=== PATIENT | female | born 1955 | race Caucasian/White ===

== ENCOUNTER 2021-10-29 08:59 | Outpatient (CLI) | payer MEDICARE, BC, SELFPAY ==
[2021-10-29 09:38] LABS: Hemoglobin A1C* 7.2 % (0-5.6)
[2021-10-29 13:32] LABS: Basophils Percent Auto 0.3 % (0.0-3.0); Eosinophils Percent Auto 6.7 % (0.0-7.0); Hematocrit 41.7 % (33.0-51.0); Hemoglobin* 13.7 gm/dL (12.0-16.0); Immature Granulocytes Abs Auto 0.04 K/uL (0.00-0.30); Lymphocytes Percent Auto 25.1 % (20-44); Mean Corpuscular HGB Conc 33 gm/dL (32-36); Mean Corpuscular Hemoglobin 28 pg (26-34); Mean Corpuscular Volume 85 fL (80-100); Monocytes Percent Auto 6.1 % (0.0-11.0); Neutrophils Percent Auto 61.5 % (42.0-72.0); Platelet Count* 344 K/uL (140-440); RDW Coefficient of Variation % 14.4 % (11.5-15.5); Red Blood Count 4.91 m/uL (4.00-5.20); White Blood Count* 12.18 K/uL (4.50-11.00)
[2021-10-29 13:34] LABS: Slide Review Reflex No
[2021-10-29 13:51] LABS: Creatinine Urine 117.3 mg/dL
[2021-10-29 13:54] LABS: Microalbumin Creatinine Ratio 90 mg/g (0-30); Microalbumin Urine 11 mg/dL
[2021-10-29 15:45] LABS: Albumin* 3.7 g/dL (3.3-5.0); Blood Urea Nitrogen* 16 mg/dL (7-30); Carbon Dioxide* 29 mmol/L (20-32); Chloride* 100 mmol/L (96-114); Creatinine* 0.6 mg/dL (0.5-1.5); Estimated Glomerular Filt Rate 100 ml/min; Glucose* 170 mg/dL (60-115); Potassium* 4.6 mmol/L (3.6-5.1); Sodium* 136 mmol/L (135-149); Total Protein* 6.8 g/dL (6.0-8.3)
[2021-10-29 15:46] LABS: Alanine Aminotransferase* 9 U/L (4-35); Alkaline Phosphatase* 113 U/L (40-150); Aspartate Amino Transferase* 21 U/L (12-35); Bilirubin Total* 0.6 mg/dL (0.1-1.5); Cholesterol* 203 mg/dL (90-199); HDL Cholesterol* 55 mg/dL (>=50); LDL Cholesterol Calculated 109 mg/dL (<100); Triglycerides* 197 mg/dL (40-149); Vitamin B12* 247 pg/mL (243-894)
== END 2021-10-29 09:00 | disposition home or self-care (01) ==
PROVIDERS: PCP Nurse Practitioner Family; Visit Provider Nurse Practitioner Family
DX: Z00.00 Encounter for general adult medical examination without abnormal findings (principal); E11.9 Type 2 diabetes mellitus without complications; R53.83 Other fatigue; I10 Essential (primary) hypertension; D51.8 Other vitamin B12 deficiency anemias; G62.9 Polyneuropathy, unspecified; E03.9 Hypothyroidism, unspecified; F41.9 Anxiety disorder, unspecified
CPT/HCPCS: 36415; 80053; 80061; 82043; 82570; 82607; 83036; 85025

== ENCOUNTER 2022-09-19 09:38 | Outpatient (CLI) | payer MEDICARE, BC, SELFPAY | END 2022-09-19 09:39 | disposition home or self-care (01) | PROVIDERS: PCP Nurse Practitioner Family; Visit Provider Nurse Practitioner Family | DX: E11.9 Type 2 diabetes mellitus without complications (principal); R53.83 Other fatigue; D51.8 Other vitamin B12 deficiency anemias; Z13.0 Encounter for screening for diseases of the blood and blood-forming organs and certain disorders involving the immune mechanism; Z13.6 Encounter for screening for cardiovascular disorders | CPT/HCPCS: 80053; 80061; 81015; 82043; 82570; 82607; 84443; 85025; 87077; 87086; 87186 ==

== ENCOUNTER 2022-10-08 11:50 | Outpatient (CLI) | payer MEDICARE, BC, SELFPAY | END 2022-10-08 11:51 | disposition home or self-care (01) | PROVIDERS: PCP Nurse Practitioner Family; Visit Provider Nurse Practitioner Family | DX: R32 Unspecified urinary incontinence (principal) | CPT/HCPCS: 81015; 87086; 87186 ==

== ENCOUNTER 2022-10-28 08:07 | Outpatient (CLI) | payer MEDICARE, BC, SELFPAY | END 2022-10-28 08:08 | disposition home or self-care (01) | PROVIDERS: PCP Nurse Practitioner Family; Visit Provider Nurse Practitioner Family | DX: R32 Unspecified urinary incontinence (principal); Z13.21 Encounter for screening for nutritional disorder; Z86.39 Personal history of other endocrine, nutritional and metabolic disease; R53.83 Other fatigue; F34.1 Dysthymic disorder | CPT/HCPCS: 81015; 82306; 87086; 87186 ==

== ENCOUNTER 2022-10-29 | Outpatient (CLI) | payer MEDICARE, BC, SELFPAY | END 2022-10-29 00:01 | disposition home or self-care (01) | LOC: NFLDREF 20:47 | PROVIDERS: PCP Nurse Practitioner Family; Referring Provider Nurse Practitioner Family; Visit Provider Nurse Practitioner Family | DX: N39.0 Urinary tract infection, site not specified (principal); F33.8 Other recurrent depressive disorders | CPT/HCPCS: 87086; 87186 ==

== ENCOUNTER 2022-12-06 13:15 | Outpatient (CLI) | payer MEDICARE, BC, SELFPAY ==
[2022-12-05 11:40] LABS: Creatinine* 0.7 mg/dL (0.5-1.5); Estimated Glomerular Filt Rate 96 ml/min
--- NOTE | 2022-12-06 14:00 | CRLHL7_ITS ---
For Patients: As a result of the Century Cures Act, medical imaging exams and procedure reports are released immediately into your electronic medical record. You may view this report before your referring provider. If you have questions, please contact your health care provider. INDICATION: URINARY INCONTINENCE TECHNIQUE: CT abdomen and pelvis urogram without and with 100 cc Isovue 370 intravenous contrast. Contrast images were obtained in the nephrographic and delayed phases. COMPARISON: None. FINDINGS: KIDNEYS: The unenhanced images demonstrate no kidney or ureteral stones. The kidneys are normal in caliber and demonstrate normal uptake and excretion of IV contrast. Lobular contour of the kidneys without solid renal mass or cyst. The renal collecting systems and ureters are symmetrical, normal in caliber, and without evidence of mass or filling defect. URINARY BLADDER: The bladder is incompletely distended. No discernible filling defect or wall thickening. No adjacent inflammation. OTHER: Dependent atelectasis is present within the left lower lobe. Fatty liver. Spleen normal. Small hiatal hernia. No adrenal nodule. Pancreas within normal limits. Gallbladder absent. Upper abdominal varices. No ascites. Sigmoid diverticulosis. No diverticulitis. No bowel obstruction. Large left paramedian abdominal wall hernia containing multiple loops of bowel measuring 21.3 cm. No small bowel obstruction, free air, free fluid or abscess. There is a lobular structure adjacent to the left anterior uterus measuring 3.0 cm. IMPRESSION: 1. No solid renal mass or stone. No hydronephrosis. 2. Probable fibroids arising from the uterus. Pelvic ultrasound recommended for further evaluation. 3. Fatty liver. 4. Sigmoid diverticulosis. Please note that all CT scans at this facility use dose modulation, iterative reconstruction, and/or weight-based dosing when appropriate to reduce radiation dose to as low as reasonably achievable. Dictated by Victorino Bowers MD @ 12/09/2022 4:00:06 PM (Electronically Signed)
== END 2022-12-06 13:16 | disposition home or self-care (01) ==
LOC: CT 13:15
PROVIDERS: PCP Nurse Practitioner Family; Visit Provider Nurse Practitioner Family
DX: R32 Unspecified urinary incontinence (principal); K76.0 Fatty (change of) liver, not elsewhere classified; K57.30 Diverticulosis of large intestine without perforation or abscess without bleeding
CPT/HCPCS: 36415; 74178; 82565; Q9967

== ENCOUNTER 2023-01-03 13:47 | Outpatient (CLI) | payer MEDICARE, BC, SELFPAY | END 2023-01-03 13:48 | disposition home or self-care (01) | PROVIDERS: PCP Nurse Practitioner Family; Visit Provider Nurse Practitioner Family | DX: R05.9 Cough, unspecified (principal); R06.00 Dyspnea, unspecified; R60.0 Localized edema; I10 Essential (primary) hypertension; R42 Dizziness and giddiness; E55.9 Vitamin D deficiency, unspecified; R51.9 Headache, unspecified | CPT/HCPCS: 83880; 84484; 85025 ==

== ENCOUNTER 2023-02-11 09:55 | Outpatient (CLI) | payer MEDICARE, BC, SELFPAY | END 2023-02-11 09:56 | disposition home or self-care (01) | PROVIDERS: PCP Nurse Practitioner Family; Visit Provider Nurse Practitioner Family | DX: N39.0 Urinary tract infection, site not specified (principal); R35.0 Frequency of micturition | CPT/HCPCS: 81015; 87086; 87186 ==

== ENCOUNTER 2023-03-04 07:38 | Outpatient (CLI) | payer MEDICARE, BC, SELFPAY | END 2023-03-04 07:39 | disposition home or self-care (01) | PROVIDERS: PCP Nurse Practitioner Family; Visit Provider Nurse Practitioner Family | DX: N39.0 Urinary tract infection, site not specified (principal) | CPT/HCPCS: 81015; 87086; 87186 ==

== ENCOUNTER 2023-03-21 07:59 | Outpatient (CLI) | payer MEDICARE, BC, SELFPAY | END 2023-03-21 08:00 | disposition home or self-care (01) | LOC: KYNREF 10:04 | PROVIDERS: PCP Nurse Practitioner Family; Visit Provider Nurse Practitioner Family | DX: N39.0 Urinary tract infection, site not specified (principal) | CPT/HCPCS: 81015; 87086; 87186 ==

== ENCOUNTER 2023-04-18 11:16 | Outpatient (CLI) | payer MEDICARE, BC, SELFPAY | END 2023-04-18 11:17 | disposition home or self-care (01) | PROVIDERS: PCP Nurse Practitioner Family; Visit Provider Nurse Practitioner Family | DX: N39.0 Urinary tract infection, site not specified (principal); B96.20 Unspecified Escherichia coli [E. coli] as the cause of diseases classified elsewhere | CPT/HCPCS: 81015; 87086; 87186 ==

== ENCOUNTER 2023-07-25 09:45 | Outpatient (CLI) | payer MEDICARE, BC, SELFPAY ==
--- OUTSIDE RECORDS SUMMARY | 2023-07-25 09:50 | XMS_ITS | Encounter Summary ---
Author Name Unknown Organization [facility] Address [address] [place] [address] Care Team Providers Care Senior Recruiter Name Role Phone Elsewhere, Pcp Primary Care Provider Unavailabl e Reason for Visit * Appointment Request (Routine) - Closed Specialty Diagnoses / Procedures Referred By Contac t Referred To Contact Urology Diagnoses Urinary Urge Incontinence Referral ID Status Reason Start Date Expiration Date Visits Re quested Visits Authorized [id number] Closed 03/28/2023 03/27/2024 1 1 Encounter Details Date Type Department Care Team (Late st Contact Info) Description 05/29/2023 10:30 AM CDT Office Visit Department of Urology in [address] [address] Dasha Chance P[address]ALuisa-C[address] [address] Cystitis Recurrent (Primary Dx); Urgency Urinary Discharge Disposition: Home or Self Care Social History Tobacco Use Types Packs/Day Years Used Date Smoking Tobacco: Never Smokeless Tobacco: Never Alcohol Use Standard Drinks/Week Comments Not Currently 0 (1 standard drink = 0.6 oz pur e alcohol) Humiliation, Afraid, Rape, and Kick questionnair e Answer Date Recorded Within the last year, have y ou been afraid of your partner or ex-partner? No 10/28/2022 Within the last year, have y ou been humiliated or emotionally abused in other ways by your partner or ex-partner? No Within the last year, have y ou been kicked, hit, slapped, or otherwise physically hurt by your partner or ex-partner? No 10/28/2022 Within the last year, have y ou been raped or forced to have any kind of sexual activity by your partner or ex-partner? No 10/28/2022 Social Connection and Isolat ion Panel [NHANES] Answer Date Recorded In a typical week, how many times do you talk on the phone with family, friends, or neighbors? More than three times a week 11/01/2019 How often do you get togethe r with friends or relatives? Patient declined 11/01/2019 How often do you attend chur or pentecostal services? Patient declined 11/01/2019 Do you belong to any clubs o r organizations such as anabaptist groups, unions, fraternal or athletic groups, or school groups? Patient declined 11/01/2019 How often do you attend meet ings of the clubs or organizations you belong to? Patient declined 11/01/2019 Are you , , di vorced, , never , or living with a partner? 11/01/2019 AUDIT-C Answer Date Recorded Q1: How often do you have a drink containing alc ohol? Monthly or less 11/01/2019 Q2: How many drinks containi ng alcohol do you have on a typical day when you are drinking? 1 or 2 11/01/2019 Q3: How often do you have si x or more drinks on one occasion? Never 11/01/2019 Overall Financial Resource Strain (CARDIA) Answe r Date Recorded How hard is it for you to pa y for the very basics like food, housing, medical care, and heating? Not hard at all 10/28/2022 [facility] - Occupational Stress Questionnaire Answer Date Recorded Do you feel stress - tense, restless, nervous, or anxious, or unable to sleep at night because your mind is troubled all the time - these days? To some extent 11/01/2019 Exercise Vital Sign Answer Date Recorde d On average, how many days pe r week do you engage in moderate to strenuous exercise (like a brisk walk)? Patient declined On average, how many minutes do you engage in exercise at this level? Patient declined 10/28/2022 Hunger Vital Sign Answer Date Recorded Within the past 12 months, y ou worried that your food would run out before you got the money to buy more. Never true 10/29/19 Within the past 12 months, t he food you bought just didn't last and you didn't have money to get more. Never true 10/28/2022 PRAPARE - Transportation Answer Date Re corded In the past 12 months, has l ack of transportation kept you from medical appointments or from getting medications? No 10/15 In the past 12 months, has l ack of transportation kept you from meetings, work, or from getting things needed for daily living? No 10/28/2022 Nutrition Answer Date Recorded Nutrition: EVOO Fat Source Unknown 10/28 On average, how many serving s of fruits and vegetables do you eat per day (serving size is equal to 1 cup or approximately the size of a tennis ball)? 3-5 10/28/2022 Dental Answer Date Recorded Dental: Regular Dentist Yes 03/21/19 Employment Answer Date Recorded Employment status Retired 10/28/2022 Housing Stability Answer Date Recorded What is your living situation today? I have a [facility] place to live 10/28/2022 Education Answer Date Recorded What is the highest level of school you have completed or the highest degree you have received? 12th grade 11/01/2019 Sex and Gender Information Value Date Recorded Sex Assigned at Female 07/22/2017 8:24 AM CDT Gender Identity Female 07/22/2017 8:24 AM CDT Sexual Orientation Choose not to disclose 2017 8:24 AM CDT documented as of this encounter Patient Instructions * Patient Instructions* Dasha Chance P.A.-C. - 05/29/2023 10:30 AM CDT #1 Recurrent UTI, postmenopausal - obtain records from [place] - urinalysis with microscopy, urine culture, upper tract imaging - if we have documented recurrent UTI > 3 over a year, would recommend starting UTI prevention: - topical estrogen apply dime-sized amount to the external urethra 3 nights weekly (long lines operator plan for preventing UTI and postmenopausal women) - six-month therapy of methenamine 1000 mg twice daily plus vitamin-C 1000 mg twice daily (sterilizes the kidney system) - daily cranberry with meals 2x/day - daily probiotic with meals 2x/day - standing orders for urinalysis with microscopy urine culture to use as needed ([facility]) # 2 urinary urge incontinence - we need to manage recurrent UTI before we have a better understanding of your true bladder health. - before considering third line options sacral neuromodulation InterStim or Botox, we need to complete a formal pelvic exam and cystoscopy Behavioral management: - timed voiding every 2 hours during the day - restrict fluids 3 hours before bed - elevate lower extremities 3 hours before bed if you experience lower extremity swelling - max fluid intake 60 oz daily - avoid all dietary irritants - consider meeting with pelvic floor physical therapy, they can help you work on urge suppression which are mindfulness techniques, as well as guide your pelvic floor physical therapy routine Medical management: Anticholinergics: Oxybutynin, tolterodine, trospium... Several others - you believe you are on 1 ofthese medications trialed for about a month and did not find it effective. - potential side effects: Dry eyes, dry mouth, constipation, increased risk of falling, confusion and dementia with long-term use Mirabegron - review, urine insurance would charge you $250/ 60 days - potential side effects: Headache, marginal increase in blood pressure, can be costly if your insurance is not willing to help cover Surgical options (see handouts below) - Botox - in the OR or in the office, usually needs to be done every 4-6months - Sacral neuromodulation Interstim, pacemaker for the bladder Avoid the following dietary bladder irritants: - caffeine, nicotine and alcohol - coffee/tea (even decaf) - citrus fruits/juices (grapefruit, kiwi, sunny, limes, oranges, tangerines) - other fruit (apples, grapes, guava, melons, nectarines, peaches, pineapples, plums, strawberries) - carbonated beverages (pop), even sparkling water - vitamin C and vitamin Bs - chili peppers/spicy food - onions - tomatoes - vinegar (apple cider gummies, salad dressing, pickled foods) documented in this encounter Progress Notes * Bereket Prieto R.N. - 05/29/2023 10:30 AM CDT Bladder Scan Documentation Void prior to Scan: YES Bladder Distention: absent Patient states need to void: NO Position during scan: supine Bladder Scan Volume: NA Post Void Residual: 146 ml Was Uroflow used: NO If yes, complex uroflowmetry was completed using calibrated electronic equipment utilized. * Dasha Chance P.A.-C. - 05/29/2023 10:30 AM CDT SUBJECTIVE CHIEF COMPLAINT/REASON FOR VISIT Face to Face, uro clinic [facility] - UUI HISTORY OF PRESENT ILLNESS Pleasant 68-year-old female, returns today for further discussion of recurrent UTI and urge incontinence. Bit of a difficult story, she [facility] and we do not have theserecords. She reports she did have a CT urogram done I do not have a radiology report but he was able to review the images, no stones and no hydro. She reports she continues with recurrent infections her assists with topical estrogen 3 times weekly. She never took the methenamine vitamin-C therapy. If she has a UTI she usually can appreciate some intermittent left lower quadrant pain, urinary hesitation dysuria and urge incontinence. Upon further questioning, she has not certain if her symptomsresolve or not when she is on the antibiotic. REVIEW OF SYSTEMS Per HPI. Pain 0/10 OBJECTIVE VITAL SIGNS There were no vitals taken for this visit. PHYSICAL EXAMINATION General: Overall well-appearing, no acute distress. Skin: No raised areas, rashes or lesions to areas I inspected. Eyes: No scleral icterus, normal conjunctivae. Respiratory: Normal respiratory effort. Musculoskeletal: Walks with a steady gait, without assistance. Psychiatric: Appropriate affect. Neurological: Alert and oriented x4. DIAGNOSTICS Lab Results Component Value Date/Time GLUCOSE 140 (H) 04/09/2021 0836 GLUCOSE 178 (H) 09/21/2020 0924 GLUCOSE 160 (H) 09/02/2019 1020 GLUCOSE 108 (H) 12/29/2018 1508 GLUCOSE 119 (H) 01/20/2018 1555 Lab Results Component Value Date/Time HGBA1C 8.0 (H) 04/09/2021 0836 HGBA1C 7.7 (H) 09/21/2020 0924 HGBA1C 7.7 (H) 04/17/2020 0814 HGBA1C 7.1 (H) 09/02/2019 1020 HGBA1C 6.9 (H) 12/29/2018 1508 ASSESSMENT / PLAN ASSESSMENT/PLAN #1 Recurrent UTI, postmenopausal - obtain records from [place] - urinalysis with microscopy, urine culture, upper tract imaging - if we have documented recurrent UTI > 3 over a year, would recommend starting UTI prevention: - topical estrogen apply dime-sized amount to the external urethra 3 nights weekly (long lines operator plan for preventing UTI and postmenopausal women) - six-month therapy of methenamine 1000 mg twice daily plus vitamin-C 1000 mg twice daily (sterilizes the kidney system) - daily cranberry with meals 2x/day - daily probiotic with meals 2x/day - standing orders for urinalysis with microscopy urine culture to use as needed ([facility]) # 2 urinary urge incontinence - we need to manage recurrent UTI before we have a better understanding of your true bladder health. - before considering third line options sacral neuromodulation InterStim or Botox, we need to complete a formal pelvic exam and cystoscopy Behavioral management: - timed voiding every 2 hours during the day - restrict fluids 3 hours before bed - elevate lower extremities 3 hours before bed if you experience lower extremity swelling - max fluid intake 60 oz daily - avoid all dietary irritants - consider meeting with pelvic floor physical therapy, they can help you work on urge suppression which are mindfulness techniques, as well as guide your pelvic floor physical therapy routine Medical management: Anticholinergics: Oxybutynin, tolterodine, trospium... Several others - you believe you are on 1 ofthese medications trialed for about a month and did not find it effective. - potential side effects: Dry eyes, dry mouth, constipation, increased risk of falling, confusion and dementia with long-term use Mirabegron - review, urine insurance would charge you $250/ 60 days - potential side effects: Headache, marginal increase in blood pressure, can be costly if your insurance is not willing to help cover Surgical options (see handouts below) - Botox - in the OR or in the office, usually needs to be done every 4-6months - Sacral neuromodulation Interstim, pacemaker for the bladder Avoid the following dietary bladder irritants: - caffeine, nicotine and alcohol - coffee/tea (even decaf) - citrus fruits/juices (grapefruit, kiwi, sunny, limes, oranges, tangerines) - other fruit (apples, grapes, guava, melons, nectarines, peaches, pineapples, plums, strawberries) - carbonated beverages (pop), even sparkling water - vitamin C and vitamin Bs - chili peppers/spicy food - onions - tomatoes - vinegar (apple cider gummies, salad dressing, pickled foods) PATIENT EDUCATION Ready to learn, no apparent learning barriers were identified; learning preferences include listening. Explained diagnosis and treatment plan; patient expressed understanding of the content. documented in this encounter Plan of Treatment Not on file documented as of this encounter Procedures Procedure Name Priority Date/Time Associated Diagnosis Comments CYTOLOGY NON-RETAIL WIRELESS ASSOCIATE Routine 05/29/2023 12:0 6 PM CDT Urgency Urinary BACTERIAL CULTURE, AEROBIC + SUSC, URINE Routine 05/29/2023 12:06 PM CDT Cystitis Recurrent URINALYSIS WITH MICROSCOPIC Routine 05/29/2023 12:06 PM CDT Cystitis Recurrent documented in this encounter Results * Cytology Non-RETAIL WIRELESS ASSOCIATE (05/29/2023 12:06 PM CDT) 06/02/2023 11:42 AM CDT ECLR Fixative NA 06/02/2023 11:42 AM CDT ECLR Report electronically signed by Alfonso Mendoza M.D. I verify that I have examined all relevant slides/material s for the specimen(s) and rendered or confirmed the diagnosis. 06/02/2023 11:42 AM CDT ECLR Gross Description Received 30 cc of cloudy yellow fluid without fixative. 06/02/2023 11:42 AM CDT ECLR Collection Procedure Straight catheter 06/02/2023 11:42 AM CDT ECLR Source A. Urine, straight, catheterized 06/02/2023 11:42 AM CDT ECLR Clinical History cystitis recurrent 06/02/2023 11:42 AM CDT ECLR Interpretation A. Urine, straight, catheterized (cytospin): Negative for High-Grade Urothelial Carcinoma. Crystals present. Scanty cellularity. 06/02/2023 11:42 AM CDT ECLR Urine 05/29/2023 12:0 6 PM CDT 05/30/2023 11:39 AM CDT Dasha Chance P.A.-C. LAB SURG PATH OR DERABLES Performing Organization Address [facility] Co de Phone Number [facility] [address] [place] [id number], [facility] ECLR [address] [place] [id number] * Bacterial Culture, Aerobic + Susceptibility, Urine (05/29/2023 12:06 PM CDT) Urine Culture No growth after 1 day of incubation. 05/30/2023 6:31 PM CDT ECLR Urine (Urine, Straight Catheter) 05/29/2023 12:06 PM CDT 05/29/2023 8:26 PM CDT Comment:Specimen Source Site : Urine Dasha Chance P.A.-C. LAB MICROBIOLOGY - GENERAL ORDERABLES Performing Organization Address [facility] Co de Phone Number [facility] [address] [place] [phone], [facility] ECLR [facility] in [address] [address] * (ABNORMAL) Urinalysis, with Microscopic: Urine, Straight Catheter (05/29/2023 12:06 PM CDT) Source Urine, Urine, Straight Catheter 05/29/2023 12:34 PM CDT [facility] Clarity Clear Clear 05/29/2023 12:35 PM CDT [facility] Color Yellow 05/29/2023 12:35 PM CDT [facility] Comment: ----REFERENCE VALUE---- Colorless Yellow Karis Blood Negative Negative 05/29/2023 12:35 PM CDT [facility] Nitrite Negative Negative 05/29/2023 12:35 PM CDT [facility] Leukocyte Esterase Negative Negative 05/29/2023 12:35 PM CDT [facility] Protein Trace mg/dL 05/29/2023 12:35 PM CDT [facility] Comment: ----REFERENCE VALUE---- Negative Trace Glucose >=1000(A) Negative mg/dL 05/29/2023 12:35 PM CDT [facility] Ketone Trace(A) Negative mg/dL 05/29/2023 12:35 PM CDT [facility] Bilirubin Negative Negative 05/29/2023 12:35 PM CDT [facility] pH 5.0 5.0 - 8.0 05/29/2023 12:35 PM CDT [facility] Specific [place] 1.030 1.001 - 1.035 05/29/2023 12:35 PM CDT [facility] Urobilinogen 1.0 0.2 - 1.0 mg/dL 05/29/2023 12:35 PM CDT [facility] White Blood Cells None Seen /hpf 05/29/2023 6:05 PM CDT [facility] Comment: ----REFERENCE VALUE---- Males: 0-3 Females: 0-10 Unknown: 0-10 Red Blood Cells None Seen 0 - 2 /hpf 6:05 PM CDT [facility] Hyaline Casts 1-3 /lpf 05/29/2023 6:05 PM CDT [facility] Urine (Urine, Straight Catheter) 05/29/2023 12:06 PM CDT 05/29/2023 12:20 PM CDT Dasha Chance P.A.-C. LAB URINE ORDERA BLES [facility] [address] [place] [address], [facility] [place] [address] [place] [address] documented in this encounter Visit Diagnoses Diagnosis Cystitis Recurrent- Primary Urgency Urinary documented in this encounter Additional Health Concerns Assessment Noted Time PHQ-9 Depression Total Score: 2 06/19/19 16 9:23 AM CDT documented as of this encounter Care Teams Senior Recruiter Relationship Specialty Start Date End Date Elsewhere, Pcp PCP - General Family Medicine 02/13/18 documented as of this encounter
--- OUTSIDE RECORDS SUMMARY | 2023-07-25 09:50 | XMS_ITS | Referral Summary ---
Author Name Unknown Organization [facility] Address [address] [place] [address] Care Team Providers Care Air Pollution Analyst Name Role Phone Elsewhere, Pcp Primary Care Provider Unavailabl e Source Comments Patient records contain information from all sites at [facility]. For routine questions regarding patient records, call [phone] during business hours, M-F 8:00 AM - 5:00 PM Central Time. Record requests for emergency care only can be directed to [phone] at any time.[facility] Encounters Date Type Department Care Team Description 05/29/2023 10:30 AM CDT Office Visit Department of Urology in [address] [id number] Dasha Chance P.A.Magaly. Cystitis Recurrent (Primary Dx); Urgency Urinary Discharge Disposition: Home or Self Care from Last 3 Months Allergies Active Allergy Reactions Criticality Noted Date Comments Iysdily-Niq-Oke Reductase Inhibitors Myalgia 06/20/2015 Other reaction(s): Myalgia Medications Medication Sig Dispensed Refills Start Date End Date Status aspirin 81 mg capsule Take 1 tablet by mouth daily. 06/07/2013 Active levothyroxine (for_SYNTHROID, LEVOTHROID) 175 mcg tablet Take 1 tablet (175 mcg total) by mouth every morning before breakfast. 90 tablet 3 02/11/2017 Active BD INSULIN PEN NEEDLE UF MINI 31 gauge x 05/30 needle USE TO DELIVER INSULIN 3 05/09/2017 Active gabapentin (NEURONTIN) 300 mg capsule Take 2 capsules (600 mg total) by mouth 2 (two) times a day. 360 capsule 3 09/29/2017 Active potassium citrate (UROCIT-K) 10 mEq (1,080 mg) ER tablet TAKE 2 TABLETS BY MOUTH TWICE A DAY WITH MEALS 360 tablet 3 01/23/2018 Active cyanocobalamin (VITAMIN B12) 1,000 mcg/mL injection INJECT 1 ML (1,000 MCG TOTAL) UNDER THE SKIN EVERY 30 (THIRTY) DAYS. 3 mL 1 03/02/2018 Active lisinopril-hydroCH LOROthiazide (PRINZIDE,ZESTORET IC) 20-12.5 mg per tablet Take 1 tablet by mouth once daily. 30 tablet 04/06/2018 Active metFORMIN (GLUCOPHAGE) 1,000 mg tablet Take 1 tablet (1,000 mg total) by mouth 2 (two) times a day with meals. 60 tablet 04/06/2018 Active TRESIBA FLEXTOUCH U-100 100 unit/mL (3 mL) injection INJECT 36 UNITS UNDER THE SKIN AT BEDTIME. 3 pen 04/27/2018 Active cholecalciferol (VITAMIN D3) 2,000 Unit tablet Take 2,000 Units by mouth. Active glipiZIDE (GLUCOTROL) 10 mg tablet Take 10 mg by mouth 2 (two) times a day before breakfast and dinner. 10 mg in the morning and 5 mg in the evening 04/12/2021 Active metoprolol succinate (TOPROL-XL) 25 mg 24 hr tablet Take 25 mg by mouth. 08/24/2020 Active Contour Next Test Strips USE 1 TEST STRIP TWICE A DAY 10/20/2022 Active escitalopram (LEXAPRO) 10 mg tablet 10/29/2022 Active FLUoxetine (PROzac) 20 mg tablet Take 2 tablets by mouth daily. 02/12/2011 Active levothyroxine (SYNTHROID, LEVOTHROID) 150 mcg tablet Take 150 mcg by mouth every morning before breakfast. 02/12/2011 Active estradioL (ESTRACE) 0.1 mg/g (0.01%) vaginal cream Apply dime-sized amount to the external urethra 3 nights weekly 42.5 g 11 12/09/2022 Active ascorbic acid, vitamin C, (Vitamin C) 1,000 mg tablet Take 1 tablet (1,000 mg total) by mouth 2 (two) times a day. 180 tablet 1 05/29/2023 11/25/2023 Active methenamine (HIPREX) 1 gram tablet Take 1 tablet (1 g total) by mouth 2 (two) times a day. 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 Morbid Obesity 08/10/2016 Overview: Overview: Rule activated problem due to BMI 45-49 posted on 08/10 at 11:07 CDT. 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 09/14/2014 Overview: Overview: Diabetes Mellitus Retinopathy Nonprolif NOS Deficiency Of Other Specified B Group Vitamins 0 09/14/2014 Diabetes Mellitus Type 2 09/14/2013 Hypertension Essential Primary 06/12/2013 Overview: Unspecified Essential Hypertension HTN (hypertension) Leiomyoma Personal History 06/12/2013 Overview: Intramural leiomyoma of uterus Hyperlipidemia Mixed 06/12/2013 Overview: Mixed hyperlipidemia Edema Retina 06/12/2013 Overview: Retinal edema Fibroid Uterus Intramural 04/16/2011 Fibroid Uterus Submucous 04/16/2011 Depressive Disorder 04/11/2011 Overview: Depression onset unknown Hypothyroidism 04/11/2011 Overview: onset unknown Depression Major One Episode Moderate 02/12/2011 Diabetes Mellitus Type 2 02/12/2011 Hyperlipidemia Mixed 02/12/2011 Hypertension Essential Primary 02/12/2011 Overview: Overview: Unspecified Essential Hypertension HTN (hypertension) Hypothyroidism 02/12/2011 Overview: Overview: onset unknown Hyperlipidemia 04/24/2010 Overview: onset unknown Telangiectasia Retina Nondiabetic 10/27/2006 Edema Retina 05/30/2005 Fracture Humerus Closed Initial Right Follow Up Exam Resolved Problems Problem Noted Date Diagnosed Date Resolved Date Effusion Pleural 09/14/2014 01/22/2017 Overview: date unknown Stone Kidney 09/08/2012 01/22/2017 Hypertension 04/24/2010 06/20/2017 Overview: Hypertension onset unknown Immunizations Name Administration Dates Next Due Influenza, Injectable, Mdck, Preservative Free, Quadrivalent 03/24/2019 Influenza, Injectable, Quadrivalent 01/22/2017 Influenza, Unspecified 03/24/2019,02/22/2015 PCV13 04/21/2020 PPSV23 07/28/2013,04/11/2011 RZV (SHINGRIX) 03/24/2019,08/21/2018 SARS-COV-2 (COVID-19) - PFIZ ER (Discontinued)(12 years or older) 01/08/2021 Tdap 02/08/2023,10/04/2013,08/19/2007 influenza vaccine quad (FLUZONE/FLUARIX) (6 months and older)(PF) 01/08/2022,01/08/2021,02/11/2020,2019,01/22/2017,02/22/2015 Social History Tobacco Use Types Packs/Day Years Used Date Smoking Tobacco: Never Smokeless Tobacco: Never Tobacco Cessation:Counseling Given: Not Answered Alcohol Use Standard Drinks/Week Comments Not Currently [...] 11/01/2019 How often do you attend chur ch or advent services? Patient declined 11/01/2019 Do you belong to any clubs o r organizations such as synagogue groups, unions, fraternal or athletic groups, or [...] and heating? Not hard at all 10/28/2022 [facility] - Occupational Stress [...] your living situation today? I have a [facility] place to live 10/28/2022 Education Answer Date Recorded What is the highest level of school you have completed or the highest degree you have received? 12th grade 11/01/2019 Sex and Gender Information Value Date Recorded Sex Assigned at Female 07/22/2017 8:24 AM CDT Gender Identity Female 07/22/2017 8:24 AM CDT Sexual Orientation Choose not to disclose 2017 8:24 AM CDT Last Filed Vital Signs Vital Sign Reading Time Taken Comments Blood Pressure 155/69 02/08/2023 5:41 PM LOW EMISSION AUTOMOBILE DESIGNER Pulse 66 01/15/2023 12:52 PM CDT Temperature 36.7 ??C (98 ??F) 02/08/2023 5:41 PM [employer] EMISSION [employer]LE DESIGNER Respiratory Rate 18 02/08/2023 5:41 PM L[employer] EMISSION [employer]LE DESIGNER Oxygen Saturation 96% 02/08/2023 5:41 PM L[employer] EMISSION [employer]LE DES[employer]ER Inhaled Oxygen Concentration - - Weight 134 kg (295 lb) 12/26/2018 8:14 AM CDT Height 172.7 cm (5' 8) 02/08/2023 5:38 PM [employer] EMISSION [employer] DESIGN[employer] Body Mass Index 46.2 12/26/2018 8:14 AM CDT Plan of Treatment Not on file Medical Devices Implanted Type Area Extras Casting Director Device Identifier Shelf Expiration Date Model / Serial / Lot Mrk Biop Tmr Q Shp [id number] - [id number] Implanted:Qty: 1 on 12/11/2022 at [facility] Imaging Mark[employer] 05/05/2027 [id number] / / [id number] Procedures Procedure Name Priority Date/Time Associated Diagnosis Comments CYTOLOGY NON-SORTER LUMBER STRAIGHTENER Routine 05/29/2023 12:0 6 PM CDT Urgency Urinary URINALYSIS WITH MICROSCOPIC Routine 05/29/2023 12:06 PM CDT Cystitis Recurrent BACTERIAL CULTURE, AEROBIC + SUSC, URINE Routine 05/29/2023 12:06 PM CDT Cystitis Recurrent BI BREAST DIAGNOSTIC BILATERAL WITH TOMOSYNTHESIS RAD - Routine (most inpatients and all outpatients) 10/22/2022 2:20 PM CDT Pain Breast EXTI HEMOGLOBIN A1C, B Routine 04/09/2021 8:36 AM L[employer] EMISSION [employer] DES[employer]ER EXTI THYROID-STIMULATING HORMONE-SENSITIVE (S-TSH), S Routine 04/09/2021 8:36 AM LOW EMISSION [employer] DES[employer]ER EXTI BASIC METABOLIC PANEL, S/P Routine 04/09/2021 8:36 AM LOW EMISSION [employer] DES[employer]ER EXTI LIPID PANEL, S Routine 09/21/2020 9 :24 AM CDT COLONOSCOPY Routine 07/10/2018 1:06 PM CDT Screening Cancer Colon ALBUMIN, RANDOM, U Routine 01/22/2017 10 :33 AM LOW EMISSION [employer] DESIGNER Diabetes Mellitus Type 2 With Diabetic Neuropathy (HCC) THINPREP SCREEN HPV REFLEX Routine 06/17/2013 5:00 PM CDT from Last 3 Months or Most Recently Relevant to Health Maintenance Results * Cytology Non-SORTER LUMBER STRAIGHTENER (05/29/2023 12:06 PM CDT) 06/02/2023 11:42 AM [...] SURG PATH OR DERABLES Performing Organization Address [facility]/ZIP Co de Phone Number [facility] [address] [place] [phone], [facility] ECLR [address] [place] [phone] * Bacterial Culture, Aerobic + Susceptibility, Urine (05/29/2023 12:06 PM CDT) Urine Culture No growth after 1 day of incubation. 05/30/2023 6:31 PM CDT ECLR Urine (Urine, Straight Catheter) 05/29/2023 12:06 PM CDT 05/29/2023 8:26 PM CDT Comment:Specimen Source Site : Urine Dasha Chance P.A.-C. LAB MICROBIOLOGY - GENERAL ORDERABLES Performing Organization Address [facility] Co de Phone Number [facility] [address] [place] [phone], [facility] ECLR [facility] in [address] [address] * (ABNORMAL) Urinalysis, with Microscopic: Urine, Straight [...] 8.0 05/29/2023 12:35 PM CDT RDWG Specific [place] 1.030 1.001 - 1.035 05/29/2023 12:35 PM [...] Dasha Chance P.A.-C. LAB URINE ORDERA BLES [facility] [address] [place] [address], [facility] RDWG [facility] in [place] [address] [place] [phone] * (ABNORMAL) BI Breast Diagnostic Bilateral with Tomosynthesis (10/22/2022 2:20 PM CDT) Anatomical Region Laterality Modality Breast, Breast Imaging RST L OS, Breast Imaging ARZ LOS, Breast Imaging FLA LOS Bilateral Mammography 10/22/2022 3:17 PM CDT Impressions 10/22/2022 3:24 PM CDT 1. Low suspicion 13 mm cluster of coarse heterogeneous slowly progressive microcalcifications in the outer left breast. 2. No suspicious mammographic or sonographic findings to explain the patient's retroareolar left breast pain. RECOMMENDATION: ??Biopsy Recommend biopsy of low suspicion microcalcifications of the outer left breast. ASSESSMENT: ??BI-RADS: 4A: Suspicious. Narrative 10/22/2022 3:24 PM CDT EXAM: ??BI BREAST DIAGNOSTIC BILATERAL WITH TOMOSYNTHESIS, BI ULTRASOUND BREAST FOCUSED LEFT INDICATION: ??Left breast pain Reported clinical history of pain of the outer left breast. Currently patient reports generalized pain in the subareolar and periareolar region. COMPARISON: ??Prior exam(s) were available and reviewed for comparison. DENSITY: ??b. There are scattered areas of fibroglandular density. FINDINGS: ?? No suspicious mammographic findings of the right breast. A triangular marker is placed in the region of most intense breast pain. No suspicious mammographic findings in the region of pain. An ultrasound was performed in the retroareolar left breast. No suspicious sonographic findings. 13 mm cluster of slowly progressive coarse heterogeneous calcifications in the outer left breast middle to posterior depth, somewhat in a linear distribution. Procedure Note tIz Donnelly M.D. - 10/22/2022 EXAM: BI BREAST DIAGNOSTIC BILATERAL WITH TOMOSYNTHESIS, BI ULTRASOUNDBREAST FOCUSED LEFT INDICATION: Left breast pain Reported clinical history of pain of the outer left breast. Currentlypatient reports generalized pain in the subareolar and periareolar region. COMPARISON: Prior exam(s) were available and reviewed for comparison. DENSITY: b. There are scattered areas of fibroglandular density. FINDINGS: No suspicious mammographic findings of the right breast. A triangular marker is placed in the region of most intense breast pain.No suspicious mammographic findings in the region of pain. An ultrasound was performed in theretroareolar left breast. No suspicious sonographic findings. 13 mm cluster of slowly progressive coarse heterogeneous calcifications inthe outer left breast middle to posterior depth, somewhat in a linear distribution. IMPRESSION: 1. Low suspicion 13 mm cluster of coarse heterogeneous slowly progressivemicrocalcifications in the outer left breast. 2. No suspicious mammographic or sonographic findings to explain thepatient's retroareolar left breast pain. RECOMMENDATION: Biopsy Recommend biopsy of low suspicion microcalcifications of the outer leftbreast. ASSESSMENT: BI-RADS: 4A: Suspicious. Naye Stroud C.N.P. IMG BI PROCEDU RES * Microalbumin, Random, Urine (01/22/2017 10:33 AM LOW EMISSION AUTOMOBILE DESIGNER) Microalbumin 9.2 mg/L 01/22/2017 11:15 AM LOW EMISSION AUTOMOBILE DESIGNER [facility] Creatinine 121 mg/dL 01/22/2017 11:15 AM LOW EMISSION AUTOMOBILE DESIGNER [facility] Albumin/Creatinin e Ratio 8 <25 mg/g 01/22/2017 11:15 AM LOW EMISSION AUTOMOBILE DESIGNER [facility] Urine 01/22/2017 10:3 3 AM LOW EMISSION AUTOMOBILE DESIGNER 01/22/2017 10:33 AM LOW EMISSION AUTOMOBILE DESIGNER Trinidad Bill P.A.-C. LAB URINE ORDER [place] [facility] [id number] * Pathology ThinPrep Screen HPV Reflex (06/17/2013 5:00 PM CDT) Pathologist [facility] Interpretation [id number] POWERCHART HXThPrep [facility] See Comment POWERCHART Comment: A. ??ThinPrep Pap Test Screen (Cervical/Endocervical HPV Reflex): Satisfactory for evaluation. Negative for intraepithelial lesion or malignancy. [facility] See Comment POWERCHART Comment: Report electronically signed by ANDREI Jones (ASCP) 06/22/2013 09:08 Interpreted by: ANDRZEJ Laura(ASCP) [facility] See Comment POWERCHART Comment: A. ??ThinPrep Pap Test Screen (Cervical/Endocervical HPV Reflex): Received cloudy specimen in ThinPrep vial. Test Performed by: [address] [address] Image Assembler: Anthony R. Cockerill, III, M.D. Cervix/Endocervix 06/17/2013 5:00 PM CDT Jocelyn Coleman APRN, C.N.P., D.N.P. LAB PAP PATHDX ORDERABLES POWERCHART from Last 3 Months or Most Recently Relevant to Health Maintenance Care Teams Air Pollution Analyst Relationship Specialty Start Date End Date Elsewhere, Pcp PCP - General Family Medicine 02/13/18
--- OUTSIDE RECORDS SUMMARY | 2023-07-25 09:50 | XMS_ITS ---
Author Name Unknown Organization [facility] Address [address] [place] [address] Care Team Providers Care Runner Worker Name Role Phone Unavailable Unavailable Unavailable Surgery Details Not on file Complications Check Surgery Details section. Procedure Estimated Blood Loss Check Surgery Details section. Procedure Findings Check Surgery Details section. Procedure Specimens Taken Check Surgery Details section.
--- OUTSIDE RECORDS SUMMARY | 2023-07-25 09:50 | XMS_ITS | Encounter Summary ---
Author Name Unknown Organization [facility] Address [address] [place] [address] Care Team Providers Care Cook Helper Dessert Name Role Phone Elsewhere, Pcp Primary Care Provider Unavailabl e Encounter Details Date Type Department Care Team (Late st Contact Info) Description 02/02/2018 [facility] [address] [place] [phone] Naye Stroud, C.N.P. [address] [place] [phone] Hypertension NOS (Primary Dx); Snoring; Apnea Social History Tobacco Use Types Packs/Day Years Used Date Smoking Tobacco: Unknown Smokeless Tobacco: Never Sex and Gender Information Value Date Recorded Sex Assigned at Female 07/22/2017 8:24 AM CDT Gender Identity Female 07/22/2017 8:24 AM CDT Sexual Orientation Choose not to disclose 2017 8:24 AM CDT documented as of this encounter Plan of Treatment Not on file documented as of this encounter Visit Diagnoses Diagnosis Hypertension NOS- Primary Snoring Apnea documented in this encounter Additional Health Concerns Infection Onset Date Last Indicated Resolved Time COVID19 Pending 01/06/2020 01/06/2020 01/07/2020 3 :31 PM CDT Assessment Noted Time PHQ-9 Depression Total Score: 2 06/19/19 16 9:23 AM CDT documented as of this encounter Care Teams Cook Helper Dessert Relationship Specialty Start Date End Date Elsewhere, Pcp PCP - General Family Medicine 02/13/18 documented as of this encounter
--- OUTSIDE RECORDS SUMMARY | 2023-07-25 09:50 | XMS_ITS | Clinical Summary ---
Author Name Unknown Organization [facility] Address [address] [place] [address] Care Team Providers Care Computed Tomography Technician Name Role Phone Elsewhere, Pcp Primary Care Provider Unavailabl e Source Comments Patient records contain information from all sites at [facility]. For routine questions regarding patient records, call [phone] during business hours, M-F 8:00 AM - 5:00 PM Central Time. Record requests for emergency care only can be directed to [phone] at any time.[facility] Allergies Active Allergy Reactions Criticality Noted Date Comments Ucipkjw-Zpx-Agf Reductase Inhibitors Myalgia 06/20/2015 Other reaction(s): Myalgia [...] Hypertension 04/24/2010 06/20/2017 Overview: Hypertension onset unknown Encounters Date Type Department Care Team Description 05/29/2023 10:30 AM CDT Office Visit Department of Urology in [address] [phone] Dasha Chance, KarolA.Magaly. Cystitis Recurrent (Primary Dx); Urgency Urinary Discharge Disposition: Home or Self Care from Last 3 Months Immunizations Name Administration Dates Next Due Influenza, Injectable, Mdck, Preservative Free, Quadrivalent 03/24/2019 Influenza, Injectable, Quadrivalent 01/22/2017 Influenza, Unspecified 03/24/2019,02/22/2015 PCV13 04/21/2020 PPSV23 07/28/2013,04/11/2011 RZV (SHINGRIX) 03/24/2019,08/21/2018 SARS-COV-2 (COVID-19) - PFIZ ER (Discontinued)(12 years or older) 01/08/2021 Tdap 02/08/2023,10/04/2013,08/19/2007 influenza vaccine quad (FLUZONE/FLUARIX) (6 months and older)(PF) 01/08/2022,01/08/2021,02/11/2020,2019,01/22/2017,02/22/2015 Family History Medical History Relation Name Comments Diabetes Father Diabetes Sister Relation Name Status Comments Father Sister Social History Tobacco Use Types Packs/Day Years [...] often do you attend chur ch or episcopal services? Patient declined 11/01/2019 Do you belong to any clubs o r organizations such as confucianist groups, unions, fraternal or athletic groups, or [...] and heating? Not hard at all 10/28/2022 [facility]at [facility] - Occupational Stress Questionnaire Answer Date Recorded [...] your living situation today? I have a [facility] place to live 10/28/2022 Education Answer Date [...] Comments Blood Pressure 155/69 02/08/2023 5:41 PM COMMUNITY EDUCATOR Pulse 66 01/15/2023 12:52 PM CDT Temperature 36.7 ??C (98 ??F) 02/08/2023 5:41 PM COMMUNITY EDUCATOR Respiratory Rate 18 02/08/2023 5:41 PM COMMUNITY EDUCATOR Oxygen Saturation 96% 02/08/2023 5:41 PM COMMUNITY EDUCATOR Inhaled Oxygen Concentration - - Weight 134 kg (295 lb) 12/26/2018 8:14 AM CDT Height 172.7 cm (5' 8) 02/08/2023 5:38 PM COMMUNITY EDUCATOR Body Mass Index 46.2 12/26/2018 8:14 AM CDT Plan of Treatment Health Maintenance Due Date Last Done Comments Bone Density Scan (Osteoporo sis Screen) 1955 CT Colonography 1955 Cologuard 1955 Depression Monitoring (PHQ-9) 1955 Hepatitis C Screening 1955 Hepatitis B Vaccines (1 of 3 - Risk 3-dose series) 2017 Urine Albumin 01/22/2018 01/22/2017, 1211/2014, 10/04/2013, Additional history exists Diabetic Office Visit with F oot Exam 06/18/2018 06/18/2017, 06/18/2017, 01/22/2017, Additional history exists Hemoglobin A1C 07/08/2021 04/09/2021, 0710/2020, 04/17/2020, Additional history exists Lipid (Cholesterol) Screening 09/21/2021, 12/29/2018, 01/20/2018, Additional history exists Pneumococcal vaccine (65+ ye ars) (3 of 3 - PPSV23 or PCV20) 2022 04/21/2020, 07/28/2013, 04/11/2011 Creatinine Level (Kidney Fun ction Test) 04/09/2022 04/09/2021, 09/21/2020, 09/02/2019, Additional history exists Potassium Level 04/09/2022 04/09/2021, 07/0 10/2020, 09/02/2019, Additional history exists Sodium Level 04/09/2022 04/09/2021, 07/0 10/2020, 09/02/2019, Additional history exists Thyroid Stimulating Hormone (TSH) test for thyroid function 04/09/2022 04/09/2021, 04/17/2020, 12/29/2018, Additional history exists Dilated Eye Exam 06/01/2022 06/01/2021, , 03/14/2011, Additional history exists COVID-19 Vaccine ( - 2022-2 4 season) 2022 01/08/2021, 06/16/2020, 05/26/2020 Influenza Vaccine (#1) 2022 , 01/08/2021, 02/11/2020, Additional history exists Fall Risk Screen (Annual) 03/17/2023 Office Visit for Blood Press ure Check / Re-check 04/17/2023 01/15/2023 Colonoscopy 07/11/2023 07/10/2018, 07/10/2018 Colorectal Cancer Surveillance 07/11/2023 Mammogram 10/23/2023 10/22/2022, 07/0 08/2019, 12/03/2016, Additional history exists DTaP,Tdap,and Td Vaccines (4 - Td or Tdap) 02/08/2033 02/08/2023, 10/04/2013, 08/19/2007 Zoster Vaccines Completed 03/24/2019, 08/21/2018 Cervical Cancer Screening Discontinued 09/02/2019, 05/2013 Medical Devices Implanted Type Area Banking Manager Device Identifier Shelf Expiration Date Model / Serial / Lot Mrk Biop Tmr Q [id number] [id number] - [id number] Implanted:Qty: 1 on 12/11/2022 at [facility] [employer] 05/05/2027 [id number] / / [id number] Procedures Procedure Name Priority Date/Time Associated Diagnosis Comments CYTOLOGY NON-HAIRSPRING ADJUSTER Routine 05/29/2023 12:0 6 PM CDT Urgency Urinary URINALYSIS WITH MICROSCOPIC Routine 05/29/2023 12:06 PM CDT Cystitis Recurrent BACTERIAL CULTURE, AEROBIC + SUSC, URINE Routine 05/29/2023 12:06 PM CDT Cystitis Recurrent BI BREAST DIAGNOSTIC BILATERAL WITH TOMOSYNTHESIS RAD - Routine (most inpatients and all outpatients) 10/22/2022 2:20 PM CDT Pain Breast EXTI HEMOGLOBIN A1C, B Routine 04/09/2021 8:36 AM COMMUNITY EDUCATOR EXTI THYROID-STIMULATING HORMONE-SENSITIVE (S-TSH), S Routine 04/09/2021 8:36 AM COMMUNITY EDUCATOR EXTI BASIC METABOLIC PANEL, S/P Routine 04/09/2021 8:36 AM COMMUNITY EDUCATOR EXTI LIPID PANEL, S Routine 09/21/2020 9 :24 AM CDT COLONOSCOPY Routine 07/10/2018 1:06 PM CDT Screening Cancer Colon ALBUMIN, RANDOM, U Routine 01/22/2017 10 :33 AM COMMUNITY EDUCATOR Diabetes Mellitus Type 2 With Diabetic Neuropathy (HCC) THINPREP SCREEN HPV REFLEX Routine 06/17/2013 5:00 PM CDT from Last 3 Months or Most Recently Relevant to Health Maintenance Results * Cytology Non-HAIRSPRING ADJUSTER (05/29/2023 12:06 PM CDT) 06/02/2023 11:42 AM [...] SURG PATH OR DERABLES Performing Organization Address [facility] Co de Phone Number [facility] [address] [place] [phone], [facility] ECLR [address] [place] [phone] * Bacterial Culture, Aerobic + Susceptibility, Urine (05/29/2023 12:06 PM CDT) Urine Culture No growth after 1 day of incubation. 05/30/2023 6:31 PM CDT ECLR Urine (Urine, Straight Catheter) 05/29/2023 12:06 PM CDT 05/29/2023 8:26 PM CDT Comment:Specimen Source Site : Urine Dasha Chance P.A.-C. LAB MICROBIOLOGY - GENERAL ORDERABLES Performing Organization Address [facility] Co de Phone Number [facility] [address] [place] [phone], [facility] ECLR [facility] in [address] [address] * (ABNORMAL) Urinalysis, with Microscopic: Urine, Straight [...] 8.0 05/29/2023 12:35 PM CDT RDWG Specific [place] 1.030 1.001 - 1.035 05/29/2023 12:35 PM [...] Dasha Chance P.A.-C. LAB URINE ORDERA BLES [facility] [address], [place] [address], [facility] RDWG [facility] in [place] [address], [place] [phone] * (ABNORMAL) BI Breast Diagnostic Bilateral with [...] somewhat in a linear distribution. Procedure Note Itz Donnelly M.D. - 10/22/2022 EXAM: BI BREAST [...] outer leftbreast. ASSESSMENT: BI-RADS: 4A: Suspicious. Naye TERESA BI PROCEDU RES * Microalbumin, Random, Urine (01/22/2017 10:33 AM COMMUNITY EDUCATOR) Microalbumin 9.2 mg/L 01/22/2017 11:15 AM COMMUNITY EDUCATOR [facility] Creatinine 121 mg/dL 01/22/2017 11:15 AM COMMUNITY EDUCATOR [facility] Albumin/Creatinin e Ratio 8 <25 mg/g 01/22/2017 11:15 AM COMMUNITY EDUCATOR [facility] Urine 01/22/2017 10:3 3 AM COMMUNITY EDUCATOR 01/22/2017 10:33 AM COMMUNITY EDUCATOR Trinidad Bill P.A.-C. LAB URINE ORDER [facility] [address] [address], [facility] * Pathology ThinPrep Screen HPV Reflex (06/17/2013 5:00 PM CDT) Interpretation [id number] POWERCHART HXThPrep Scrn [facility] See Comment POWERCHART Comment: A. ??ThinPrep Pap Test Screen (Cervical/Endocervical HPV Reflex): Satisfactory for evaluation. Negative for intraepithelial lesion or malignancy. HXThPrep Scrn [facility] See Comment POWERCHART Comment: Report electronically signed by Mary Anne Gutierrez, SCT (ASCP) 06/22/2013 09:08 Interpreted by: Elia Barraza, CT(ASCP) HX Spec Desc-[place] See Comment POWERCHART Comment: A. ??ThinPrep Pap Test Screen (Cervical/Endocervical HPV Reflex): Received cloudy specimen in ThinPrep vial. Test Performed by: [address] [address] Plodding Machine Operator: Anthony Virgen III, M.D. Cervix/Endocervix 06/17/2013 5:00 PM CDT Jocelyn Coleman APRN, C.N.P., D.N.P. LAB PAP PATHDX ORDERABLES POWERCHART from Last 3 Months or Most Recently Relevant to Health Maintenance Care Teams Computed Tomography Technician Relationship Specialty Start Date End Date Elsewhere, Pcp PCP - General Family Medicine 02/13/18
--- NOTE | 2023-07-25 16:00 | US_ITS ---
Patient: JOE BRASWELL Facility:?[facility] RIS Patient ID:?[id number] Site Patient ID:?[id number]. Site :?[id number] Study:?US-Extremity Left LEV LT-07/25/2023 4:44:26 PM Ordering Physician:?JANEY MONTES APRN DREDGE MECHANIC Final Report: Indication: Left leg pain and swelling Technique: Left lower extremity venous ultrasound utilizing grayscale, color flow and duplex Doppler techniques. Comparison: None Findings: Sonographic evaluation from the left common femoral, greater saphenous, through the femoral vein, popliteal vein and calf veins demonstrate no echogenic debris, normal compressibility, normal augmented duplex Doppler waveforms and normal color flow (exception of lack of color flow within the calf veins/although expected augmented waveforms present) is noted. There is no popliteal cyst. Impression: Negative study/no left lower extremity DVT. Dictated by Lul Morton MD @ 07/25/2023 4:59:07 PM Signed by:?Lul Morton MD @07/25/2023 4:59:07 PM (Electronic Signature)
== END 2023-07-25 09:46 | disposition home or self-care (01) ==
PROVIDERS: PCP Nurse Practitioner Family; Visit Provider Nurse Practitioner Family
DX: R30.0 Dysuria (principal); M79.605 Pain in left leg; R60.0 Localized edema
CPT/HCPCS: 81001; 87086; 87186; 93971

== ENCOUNTER 2023-10-14 09:49 | Outpatient (CLI) | payer MEDICARE, BC, SELFPAY ==
--- OUTSIDE RECORDS SUMMARY | 2023-10-14 09:58 | XMS_ITS | Encounter Summary ---
Author Organization [facility] Address [address] [place] [address] Care Team Providers Care Computer Systems Engineer Name Role Phone Elsewhere, Pcp Primary Care Provider Unavailabl e Reason for Referral * Outpatient (Routine) - Authorized Specialty Diagnoses / Procedures Referred By Naseem t Referred To Contact Psychiatry and Psychology Diagnoses Persistent Depressive Disorder Anxiety Disorder Unspecified Naye Stroud, C.N.P. [address] [place] [address] [facility] Region Referral ID Status Reason Start Date Expiration Date V isits Requested Visits Authorized [id number] Authorized 09/30/2023 03/31/2025 1 1 Encounter Details Date Type Department Care Team (Late st Contact Info) Description 09/30/2023 [facility] [address] [place] [address] Naye Stroud, Dawit.N.P. [address] [place] [phone] Persistent Depressive Disorder (Primary Dx); Anxiety Disorder Unspecified Social History Tobacco Use Types Packs/Day Years [...] declined 11/01/2019 How often do you attend [employer] [facility] or sabianism services? Patient declined 11/01/2019 Do you belong to any clubs o r organizations such as gnosticist groups, unions, fraIsowalk or athletic groups, or school groups? Patient [...] and heating? Not hard at all 10/28/2022 [facility] Occupat ional Health - Occupational Stress [...] your living situation today? I have a [facility] place to live 10/28/2022 Education Answer [...] as of this encounter Plan of Treatment Scheduled Referrals Name Type Priority Associated Diagnoses Orde r Schedule Psychiatry & Psychology Referral Outpatient Referral Routine Persistent Depressive Disorder Anxiety Disorder Unspecified Expected: 09/30/2023 (Approximate), Expires: 12/30/2024 documented as of this encounter Visit Diagnoses Diagnosis Persistent Depressive Disorder- Primary Anxiety Disorder Unspecified documented in this encounter Additional Health Concerns Assessment Noted Time PHQ-9 Depression Total Score: 2 06/19/19 16 9:23 AM CDT documented as of this encounter Care Teams Computer Systems Engineer Relationship Specialty Start Date End Date Elsewhere, Pcp PCP - General Family Medicine 02/13/18 documented as of this encounter
--- OUTSIDE RECORDS SUMMARY | 2023-10-14 09:58 | XMS_ITS ---
Author Organization [facility] Address [address] [place] [address] Care Team Providers Care Prototype Assembler Electronics Name Role Phone Unavailable Unavailable Unavailable Surgery Details Not on file Complications Check Surgery Details section. Procedure Estimated Blood Loss Check Surgery Details section. Procedure Findings Check Surgery Details section. Procedure Specimens Taken Check Surgery Details section.
--- OUTSIDE RECORDS SUMMARY | 2023-10-14 09:58 | XMS_ITS | Clinical Summary ---
Author Organization [facility] Address [address] [place] [address] Care Team Providers Care Battery Recharger Name Role Phone Elsewhere, Pcp Primary Care Provider Unavailabl e Source Comments Patient records contain information from all sites at [facility]. For routine questions regarding patient records, call [phone] during business hours, M-F 8:00 AM - 5:00 PM Central Time. Record requests for emergency care only can be directed to [phone] at any time.[facility] Allergies Active Allergy Reactions Criticality Noted Date Comments Ilqviwy-Cpn-Jsp Reductase Inhibitors Myalgia 06/20/2015 Other reaction(s): Myalgia [...] Body Mass Index 40.0-44.9 Adult 0 08/10/2016 Overview (01/22/2017): Rule activated problem due to BMI 45-49 posted on 08/10 at 11:07 CDT. Morbid Obesity 08/10/2016 Overview (04/06/2022): Overview: Rule activated problem due to BMI 45-49 posted on 08/10 at 11:07 CDT. 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 09/14/2014 Overview (04/06/2022): Overview: Diabetes Mellitus Retinopathy Nonprolif NOS Deficiency Of Other Specified B Group Vitamins 0 09/14/2014 Diabetes Mellitus Type 2 09/14/2013 Hypertension Essential Primary 06/12/2013 Overview (08/06/2016): Unspecified Essential Hypertension HTN (hypertension) Leiomyoma Personal History 06/12/2013 Overview (01/22/2017): Intramural leiomyoma of uterus Hyperlipidemia Mixed 06/12/2013 Overview (01/22/2017): Mixed hyperlipidemia Edema Retina 06/12/2013 Overview (01/22/2017): Retinal edema Fibroid Uterus Intramural 04/16/2011 Fibroid Uterus Submucous 04/16/2011 Depressive Disorder 04/11/2011 Overview (08/06/2016): Depression onset unknown Hypothyroidism 04/11/2011 Overview (01/22/2017): onset unknown Depression Major One Episode Moderate 02/12/2011 Diabetes Mellitus Type 2 02/12/2011 Hyperlipidemia Mixed 02/12/2011 Hypertension Essential Primary 02/12/2011 Overview (04/06/2022): Overview: Unspecified Essential Hypertension HTN (hypertension) Hypothyroidism 02/12/2011 Overview (04/06/2022): Overview: onset unknown Hyperlipidemia 04/24/2010 Overview (01/22/2017): onset unknown Telangiectasia Retina Nondiabetic 10/27/2006 Edema Retina 05/30/2005 Fracture Humerus Closed Initial Right Follow Up Exam Resolved Problems Problem Noted Date Diagnosed Date Resolved Date Effusion Pleural 09/14/2014 01/22/2017 Overview (01/22/2017): date unknown Stone Kidney 09/08/2012 01/22/2017 Hypertension 04/24/2010 06/20/2017 Overview (08/06/2016): Hypertension onset unknown Encounters Date Type Department Care Team Description 09/30/2023 [facility] AND [address] [address] Naye Stroud C.N.P. Persistent Depressive Disorder (Primary Dx); Anxiety Disorder Unspecified from Last 3 Months Immunizations Name Administration [...] often do you attend chur ch or synagogue services? Patient declined 11/01/2019 Do you belong to any clubs o r organizations such as temple groups, unions, fraternal or athletic groups, or [...] and heating? Not hard at all 10/28/2022 [facility] - Occupational [...] money to buy more. Never true 10/29/19 23 Within the past 12 months, t he [...] your living situation today? I have a [facility] place to live 10/28/2022 Education Answer [...] Comments Blood Pressure 155/69 02/08/2023 5:41 PM SOLUTION ENGINEER Pulse 66 01/15/2023 12:52 PM CDT Temperature 36.7 ??C (98 ??F) 02/08/2023 5:41 PM SOLUTION ENGINEER Respiratory Rate 18 02/08/2023 5:41 PM SOLUTION ENGINEER Oxygen Saturation 96% 02/08/2023 5:41 PM SOLUTION ENGINEER Inhaled Oxygen Concentration - - Weight 134 kg (295 lb) 12/26/2018 8:14 AM CDT Height 172.7 cm (5' 8) 02/08/2023 5:38 PM SOLUTION ENGINEER Body Mass Index 46.2 12/26/2018 8:14 AM CDT Plan of Treatment Health Maintenance Due Date Last Done Comments Bone Density Scan (Osteoporo sis Screen) 1957 CT Colonography 1957 Cologuard 1957 Depression Monitoring (PHQ-9) 1955 Hepatitis C Screening 1955 Hepatitis B Vaccines (1 of 3 - Risk 3-dose series) 2017 Urine Albumin 01/22/2018 01/22/2017, 12/0 11/2014, 10/04/2013, Additional history exists Diabetic Office Visit with F oot Exam 06/18/2018 06/18/2017, 06/18/2017, 01/22/2017, Additional history exists Hemoglobin A1C 07/08/2021 04/09/2021, 07/0 10/2020, 04/17/2020, Additional history exists Lipid (Cholesterol) Screening [...] , 03/14/2011, Additional history exists COVID-19 Vaccine (4 - 2022-2 4 season) 2022 01/08/2021, 06/16/2020, 05/26/2020 Fall Risk Screen (Annual) 03/17/2023 Office Visit for Blood Press ure Check / Re-check 04/17/2023 01/15/2023 Colonoscopy 07/11/2023 07/10/2018, 07/10/2018 Colorectal Cancer Surveillance 07/11/2023 Mammogram 10/23/2023 10/22/2022, 07/0 08/2019, 12/03/2016, Additional history exists Influenza Vaccine (#1) 2023 , 01/08/2021, 02/11/2020, Additional history exists DTaP,Tdap,and Td Vaccines (4 - Td or Tdap) 02/08/2033 02/08/2023, 10/04/2013, 08/19/2007 Zoster Vaccines Completed 03/24/2019, 08/21/2018 Cervical Cancer Screening Discontinued 09/02/2019, 05/2013 Medical Devices Implanted Type Area Handle Machine Operator Device Identifier Shelf Expiration Date Model / Serial / Lot Mrk Biop Tmr Q Shp [id number] - [id number] Implanted:Qty: 1 on 12/11/2022 at [facility] [employer] 05/05/2027 [id number] / / [id number] Procedures Procedure Name Priority Date/Time Associated Diagnosis Comments BI BREAST DIAGNOSTIC BILATERAL WITH TOMOSYNTHESIS RAD - Routine (most inpatients and all outpatients) 10/22/2022 2:20 PM CDT Pain Breast COLONOSCOPY Routine 07/10/2018 1:06 PM CDT Screening Cancer Colon ALBUMIN, RANDOM, U Routine 01/22/2017 10 :33 AM SOLUTION ENGINEER Diabetes Mellitus Type 2 With Diabetic Neuropathy (HCC) HEMOGLOBIN A1C, B Routine 01/22/2017 10: 33 AM SOLUTION ENGINEER Diabetes Mellitus Type 2 With Diabetic Neuropathy (HCC) LIPID PANEL, S Routine 01/22/2017 10:33 AM SOLUTION ENGINEER Diabetes Mellitus Type 2 With Diabetic Neuropathy (HCC) THYROID-STIMULATING HORMONE-SENSITIVE (S-TSH) Routine 01/22/2017 10:33 AM SOLUTION ENGINEER Hypothyroidism BASIC METABOLIC PANEL, S/P Routine 01/22/2017 10:33 AM SOLUTION ENGINEER Diabetes Mellitus Type 2 With Diabetic Neuropathy (HCC) THINPREP SCREEN HPV REFLEX Routine 06/17/2013 5:00 PM CDT from Last 3 Months or Most Recently Relevant to Health Maintenance Results * (ABNORMAL) BI Breast Diagnostic Bilateral with [...] outer leftbreast. ASSESSMENT: BI-RADS: 4A: Suspicious. Naye MCCLAIN BI PROCEDU RES * (ABNORMAL) Lipid Panel (01/22/2017 10:33 AM [facility]) Cholesterol, Total 185 mg/dL 2016 11:29 AM [facility] Comment: ----REFERENCE VALUE---- Desirable: < 200 Borderline high: 200 - 239 High: > or = 240 Triglycerides 234(H) mg/dL 01/22/2017 11:29 AM [facility] Comment: ----REFERENCE VALUE---- Normal: <150 Borderline high: 150-199 High: 200-499 Very high: > or =500 Cholesterol, HDL, S 49(L) >=50 mg/dL 01/22/2017 11:29 AM SOLUTION ENGINEER [facility] Calculated LDL 89 mg/dL 01/22/2017 11:29 AM [facility] Comment: ----REFERENCE VALUE---- Desirable: <100 Above Desirable: 100-129 Borderline high: 130-159 High: 160-189 Very high: > or =190 Cholesterol, Non-HDL, Calculated 136 mg/dL 01/22/2017 11:29 AM [facility] Comment: ----REFERENCE VALUE---- Desirable: <130 Above Desirable: 130-159 Borderline high: 160-189 High: 190-219 Very high: > or =220 Blood 01/22/2017 10:3 3 AM SOLUTION ENGINEER 01/22/2017 10:33 AM [facility] Trinidad Bill P.A.-C. LAB BLOOD ADD-O N [facility] [address] * Microalbumin, Random, Urine (01/22/2017 10:33 AM [facility]) Microalbumin 9.2 mg/L 01/22/2017 11:15 AM [facility] Creatinine 121 mg/dL 01/22/2017 11:15 AM [facility] Albumin/Creatinin e Ratio 8 <25 mg/g 01/22/2017 11:15 AM [facility] Urine 01/22/2017 10:3 3 AM SOLUTION ENGINEER 01/22/2017 10:33 AM [facility] Trinidad OconnorCLuisa LAB URINE ORDER HUNTER Performing Organization Address [facility] de Phone Number [facility] [address] [place] [address] * (ABNORMAL) S-TSH (Thyroid-Stimulating Hormone - Sensitive) (01/22/2017 10:33 AM [facility]) TSH, Sensitive 18.9(H) 0.3 - 4.2 mIU/L 01/22/2017 11:39 AM [facility] Comment: Biotin has been identified by the education and development manager as a potential interfering substance. ??Higher concentrations of biotin may be found in multivitamins, hair/nail supplements, and workout supplements. ??If the result does not match clinical observations, repeat testing after patient refrains from the use of supplements for at least 12 hours. Blood 01/22/2017 10:3 3 AM SOLUTION ENGINEER 01/22/2017 10:33 AM [facility] Trinidad OconnorC. LAB BLOOD ADD-O N Performing Organization Address [facility]/ZIP Co de Phone Number [facility] [address] [place] [address] * (ABNORMAL) Hemoglobin A1c (01/22/2017 10:33 AM [facility]) Hemoglobin A1c, B 7.0(H) 4.2 - 5.6 % 01/22/2017 11:16 AM [facility] Comment: Hemoglobin A1c values greater than or equal to 6.5 percent are diagnostic for diabetes mellitus. ??Diagnosis should be confirmed by repeat testing. ??In diabetic patients, HbA1c goals should be discussed with healthcare provider. Blood 01/22/2017 10:3 3 AM SOLUTION ENGINEER 01/22/2017 10:33 AM [facility] Trinidad Bill P.A.-C. LAB BLOOD ADD-O N [facility] [address] * (ABNORMAL) BMP (Basic Metabolic Panel) (01/22/2017 10:33 AM [facility]) Potassium, S 4.7 3.6 - 5.2 mmol/L 01/22/2017 11:29 AM [facility] Sodium, S 141 135 - 145 mmol/L 01/22/2017 11:29 AM [facility] Chloride, S 98 98 - 107 mmol/L 01/22/2017 11:29 AM [facility] Bicarbonate, S 25 22 - 29 mmol/L 01/22/2017 11:29 AM [facility] Anion Gap 18(H) 7 - 15 01/22/2017 11:29 AM [facility] BUN (Blood Urea Nitrogen), S 17 6 - 21 mg/dL 01/22/2017 11:29 AM [facility] Creatinine 0.66 0.59 - 1.04 mg/dL 01/22/2017 11:29 AM [facility] eGFR Non-Black/Afric an Trinidadian >90 >=60 mL/min/BSA 01/22/2017 11:29 AM [facility] Comment: ----ADDITIONAL INFORMATION---- Estimated GFR calculated using the 2009 CKD_EPI creatinine equation. eGFR-Black/Afri can Trinidadian >90 >=60 mL/min/BSA 01/22/2017 11:29 AM [facility] Comment: ----ADDITIONAL INFORMATION---- Estimated GFR calculated using the 2009 CKD_EPI creatinine equation. Calcium, Total, S 9.3 8.9 - 10.1 mg/dL 01/22/2017 11:29 AM SOLUTION ENGINEER [facility] Glucose, S 144(H) 70 - 140 mg/dL 01/22/2017 11:29 AM SOLUTION ENGINEER [facility] Blood 01/22/2017 10:3 3 AM SOLUTION ENGINEER 01/22/2017 10:33 AM SOLUTION ENGINEER Trinidad Bill P.A.-C. LAB BLOOD ADD-O N Performing Organization Address City/[facility] Co de Phone Number [facility] [id number] [place] [address], [facility] * Pathology ThinPrep Screen HPV Reflex (06/17/2013 5:00 PM CDT) Interpretation [id number] POWERCHART HXThPrep Scrn Fnl-[place] See Comment POWERCHART Comment: A. ??ThinPrep Pap Test Screen (Cervical/Endocervical HPV Reflex): Satisfactory for evaluation. Negative for intraepithelial lesion or malignancy. [facility] See Comment POWERCHART Comment: Report electronically signed by Mary Anne Gutierrez SCT (ASCP) 06/22/2013 09:08 Interpreted by: ANDRZEJ Laura(ASCP) Spec DescTexas [facility] See Comment POWERCHART Comment: A. ??ThinPrep Pap Test Screen (Cervical/Endocervical HPV Reflex): Received cloudy specimen in ThinPrep vial. Test Performed by: [place] [address] Counter Server: Anthony Virgen III, M.D. Cervix/Endocervix 06/17/2013 5:00 PM CDT Dawit Timmons APRN.N.P., D.N.P. LAB PAP PATHDX ORDERABLES POWERCHART from Last 3 Months or Most Recently Relevant to Health Maintenance Care Teams Battery Recharger Relationship Specialty Start Date End Date Elsewhere, Pcp PCP - General Family Medicine 02/13/18
--- OUTSIDE RECORDS SUMMARY | 2023-10-14 09:58 | XMS_ITS | Referral Summary ---
Author Organization [facility] Address [address] [place] [address] Care Team Providers Care Bore Mill Operator For Plastic Name Role Phone Elsewhere, Pcp Primary Care Provider Unavailabl e Source Comments Patient records contain information from all sites at [facility]. For routine questions regarding patient records, call [phone] during business hours, M-F 8:00 AM - 5:00 PM Central Time. Record requests for emergency care only can be directed to [phone] at any time.[facility] Encounters Date Type Department Care Team Description 09/30/[address] [facility] [address] [facility] [address] [place] [address] Naye Stroud, C.N.P. Persistent Depressive Disorder (Primary Dx); Anxiety Disorder Unspecified from Last 3 Months Allergies Active Allergy Reactions Criticality Noted Date Comments Yjpzeuz-Bjh-Siv Reductase Inhibitors Myalgia 06/20/2015 Other reaction(s): Myalgia [...] 04/24/2010 06/20/2017 Overview (08/06/2016): Hypertension onset unknown Immunizations Name Administration Dates [...] often do you attend chur ch or catholic services? Patient declined 11/01/2019 Do you belong to any clubs o r organizations such as methodist groups, unions, fraternal or athletic groups, or [...] and heating? Not hard at all 10/28/2022 [facility] - Occupational Stress [...] your living situation today? I have a [facility] place to live 10/28/2022 Education Answer Date [...] Comments Blood Pressure 155/69 02/08/2023 5:41 PM EXERCISE PHYSIOLOGIST CERTIFIED Pulse 66 01/15/2023 12:52 PM CDT Temperature 36.7 ??C (98 ??F) 02/08/2023 5:41 PM EXERCISE PHYSIOLOGIST CERTIFIED Respiratory Rate 18 02/08/2023 5:41 PM EXERCISE PHYSIOLOGIST CERTIFIED Oxygen Saturation 96% 02/08/2023 5:41 PM EXERCISE PHYSIOLOGIST CERTIFIED Inhaled Oxygen Concentration - - Weight 134 kg (295 lb) 12/26/2018 8:14 AM CDT Height 172.7 cm (5' 8) 02/08/2023 5:38 PM EXERCISE PHYSIOLOGIST CERTIFIED Body Mass Index 46.2 12/26/2018 8:14 AM CDT Plan of Treatment Not on file Medical Devices Implanted Type Area Staff Electrical Engineer Device Identifier Shelf Expiration Date Model / Serial / Lot Mrk Biop Tmr Q Shp [id number] - [id number] Implanted:Qty: 1 on 12/11/2022 at [facility] [employer] 05/05/2027 [id number] / / [id number] Procedures Procedure Name Priority Date/Time Associated Diagnosis Comments BI BREAST DIAGNOSTIC BILATERAL WITH TOMOSYNTHESIS RAD - Routine (most inpatients and all outpatients) 10/22/2022 2:20 PM CDT Pain Breast COLONOSCOPY Routine 07/10/2018 1:06 PM CDT Screening Cancer Colon ALBUMIN, RANDOM, U Routine 01/22/2017 10 :33 AM EXERCISE PHYSIOLOGIST CERTIFIED Diabetes Mellitus Type 2 With Diabetic Neuropathy (HCC) HEMOGLOBIN A1C, B Routine 01/22/2017 10: 33 AM EXERCISE PHYSIOLOGIST CERTIFIED Diabetes Mellitus Type 2 With Diabetic Neuropathy (HCC) LIPID PANEL, S Routine 01/22/2017 10:33 AM EXERCISE PHYSIOLOGIST CERTIFIED Diabetes Mellitus Type 2 With Diabetic Neuropathy (HCC) THYROID-STIMULATING HORMONE-SENSITIVE (S-TSH) Routine 01/22/2017 10:33 AM EXERCISE PHYSIOLOGIST CERTIFIED Hypothyroidism BASIC METABOLIC PANEL, S/P Routine 01/22/2017 10:33 AM EXERCISE PHYSIOLOGIST CERTIFIED Diabetes Mellitus Type 2 With Diabetic Neuropathy [...] * (ABNORMAL) Lipid Panel (01/22/2017 10:33 AM EXERCISE PHYSIOLOGIST CERTIFIED) Cholesterol, Total 185 mg/dL 2016 11:29 AM EXERCISE PHYSIOLOGIST CERTIFIED [facility] Comment: ----REFERENCE VALUE---- Desirable: < 200 Borderline high: 200 - 239 High: > or = 240 Triglycerides 234(H) mg/dL 01/22/2017 11:[address] [facility] Comment: ----REFERENCE VALUE---- Normal: <150 Borderline high: 150-199 High: 200-499 Very high: > or =500 Cholesterol, HDL, S 49(L) >=50 mg/dL 01/22/2017 11:29 AM EXERCISE PHYSIOLOGIST CERTIFIED [facility] Calculated LDL 89 mg/dL 01/22/2017 11:29 AM EXERCISE PHYSIOLOGIST CERTIFIED [facility] Comment: ----REFERENCE VALUE---- Desirable: <100 Above Desirable: 100-129 Borderline high: 130-159 High: 160-189 Very high: > or =190 Cholesterol, Non-HDL, Calculated 136 mg/dL 01/22/2017 11:29 AM EXERCISE PHYSIOLOGIST CERTIFIED [facility] Comment: ----REFERENCE VALUE---- Desirable: <130 Above Desirable: 130-159 Borderline high: 160-189 High: 190-219 Very high: > or =220 Blood 01/22/2017 10:3 3 AM EXERCISE PHYSIOLOGIST CERTIFIED 01/22/2017 10:33 AM EXERCISE PHYSIOLOGIST CERTIFIED Trinidad Bill P.A.-C. LAB BLOOD ADD-O N Performing Organization Address City/[facility]/ZIP Co de Phone Number [facility] [address] [place] [address] * Microalbumin, Random, Urine (01/22/2017 10:33 AM EXERCISE PHYSIOLOGIST CERTIFIED) Microalbumin 9.2 mg/L 01/22/2017 11:15 AM EXERCISE PHYSIOLOGIST CERTIFIED [facility] Creatinine 121 mg/dL 01/22/2017 11:15 AM EXERCISE PHYSIOLOGIST CERTIFIED [facility] Albumin/Creatinin e Ratio 8 <25 mg/g 01/22/2017 11:15 AM EXERCISE PHYSIOLOGIST CERTIFIED [facility] Urine 01/22/2017 10:3 3 AM EXERCISE PHYSIOLOGIST CERTIFIED 01/22/2017 10:33 AM EXERCISE PHYSIOLOGIST CERTIFIED Trinidad OconnorCLuisa LAB URINE ORDER HUNTER Performing Organization Address City/[facility]/ZIP Co de Phone Number [facility] [address] [place] [address] * (ABNORMAL) S-TSH (Thyroid-Stimulating Hormone - Sensitive) (01/22/2017 10:33 AM EXERCISE PHYSIOLOGIST CERTIFIED) TSH, Sensitive 18.9(H) 0.3 - 4.2 mIU/L 01/22/2017 11:39 AM EXERCISE PHYSIOLOGIST CERTIFIED [facility] Comment: Biotin has been identified by the senior manufacturing test engineer as a potential interfering substance. ??Higher concentrations of biotin may be found in multivitamins, hair/nail supplements, and workout supplements. ??If the result does not match clinical observations, repeat testing after patient refrains from the use of supplements for at least 12 hours. Blood 01/22/2017 10:3 3 AM EXERCISE PHYSIOLOGIST CERTIFIED 01/22/2017 10:33 AM EXERCISE PHYSIOLOGIST CERTIFIED Trinidad Blil P.A.-C. LAB BLOOD ADD-O N Performing Organization Address City/[facility]/ZIP Co de Phone Number [facility] [address] [place] [address] * (ABNORMAL) Hemoglobin A1c (01/22/2017 10:33 AM EXERCISE PHYSIOLOGIST CERTIFIED) Hemoglobin A1c, B 7.0(H) 4.2 - 5.6 % 01/22/2017 11:16 AM EXERCISE PHYSIOLOGIST CERTIFIED [facility] Comment: Hemoglobin A1c values greater than or equal to 6.5 percent are diagnostic for diabetes mellitus. ??Diagnosis should be confirmed by repeat testing. ??In diabetic patients, HbA1c goals should be discussed with healthcare provider. Blood 01/22/2017 10:3 3 AM EXERCISE PHYSIOLOGIST CERTIFIED 01/22/2017 10:33 AM EXERCISE PHYSIOLOGIST CERTIFIED Trin[place] Bill P.A.-C. LAB BLOOD ADD-O N [facility] [address] [place] [address] * (ABNORMAL) BMP (Basic Metabolic Panel) (01/22/2017 10:33 AM EXERCISE PHYSIOLOGIST CERTIFIED) Potassium, S 4.7 3.6 - 5.2 mmol/L 01/22/2017 11:29 AM [facility] Sodium, S 141 135 - 145 mmol/L 01/22/2017 11:29 AM [facility] Chloride, S 98 98 - 107 mmol/L 01/22/2017 11:29 AM [facility] Bicarbonate, S 25 22 - 29 mmol/L 01/22/2017 11:29 AM [facility] Anion Gap 18(H) 7 - 15 01/22/2017 11:29 AM [facility] BUN (Blood Urea Nitrogen), S 17 6 - 21 mg/dL 01/22/2017 11:29 AM [facility] Creatinine 0.66 0.59 - 1.04 mg/dL 01/22/2017 11:29 AM [facility] eGFR Non-Black/Afric an Tuvaluan >90 >=60 mL/min/BSA 01/22/2017 11:29 AM [facility] Comment: ----ADDITIONAL INFORMATION---- Estimated GFR calculated using the 2009 CKD_EPI creatinine equation. eGFR-Black/Afri can Tuvaluan >90 >=60 mL/min/BSA 01/22/2017 11:29 AM [facility] Comment: ----ADDITIONAL INFORMATION---- Estimated GFR calculated using the 2009 CKD_EPI creatinine equation. Calcium, Total, S 9.3 8.9 - 10.1 mg/dL 01/22/2017 11:29 AM [facility] Glucose, S 144(H) 70 - 140 mg/dL 01/22/2017 11:29 AM [facility] Blood 01/22/2017 10:3 3 AM EXERCISE PHYSIOLOGIST CERTIFIED 01/22/2017 10:33 AM [facility] Trinidad Bill P.A.-C. LAB BLOOD ADD-O N [facility] [address] [address], [facility] * Pathology ThinPrep Screen HPV Reflex (06/17/2013 5:00 PM CDT) Interpretation [id number] POWERCHART HXThPrep Scrn l-[place] See Comment POWERCHART Comment: A. ??ThinPrep Pap Test Screen (Cervical/Endocervical HPV Reflex): Satisfactory for evaluation. Negative for intraepithelial lesion or malignancy. HXThPrep Scrn Cyto-[place] See Comment POWERCHART Comment: Report electronically signed by Mary Anne Gutierrez, SCT (ASCP) 06/22/2013 09:08 Interpreted by: Elia Barraza, ANDRZEJ(ASCP) HX Spec Desc-[place] See Comment POWERCHART Comment: A. ??ThinPrep Pap Test Screen (Cervical/Endocervical HPV Reflex): Received cloudy specimen in ThinPrep vial. Test Performed by: [place] [address] Physical Therapist: Anthony Virgen III, M.D. Cervix/Endocervix 06/17/2013 5:00 PM CDT Jocelyn Coleman APRN, C.N.P., D.N.P. LAB PAP PATHDX ORDERABLES POWERCHART from Last 3 Months or Most Recently Relevant to Health Maintenance Care Teams Bore Mill Operator For Plastic Relationship Specialty Start Date End Date Elsewhere, Pcp PCP - General Family Medicine 02/13/18
--- OUTSIDE RECORDS SUMMARY | 2023-10-14 09:59 | XMS_ITS | Encounter Summary ---
Author Organization [facility] Address [address] [place] [address] Care Team Providers Care Chin Strap Maker Name Role Phone Elsewhere, Pcp Primary Care Provider Unavailabl e Encounter Details Date Type Department Care Team (Late st Contact Info) Description 02/02/2018 [facility] [address] [place] [phone] Naye Stroud, C.N.P. [address] [place] [address] Hypertension NOS (Primary Dx); Snoring; Apnea Social [...] documented as of this encounter Care Teams Chin Strap Maker Relationship Specialty Start Date End Date Elsewhere, Pcp PCP - General Family Medicine 02/13/18 documented as of this encounter
== END 2023-10-14 09:50 | disposition home or self-care (01) ==
PROVIDERS: PCP Nurse Practitioner Family; Visit Provider Nurse Practitioner Family
DX: R53.83 Other fatigue (principal); E03.9 Hypothyroidism, unspecified; E11.69 Type 2 diabetes mellitus with other specified complication; I10 Essential (primary) hypertension; E55.9 Vitamin D deficiency, unspecified; R35.0 Frequency of micturition; N39.0 Urinary tract infection, site not specified; G62.9 Polyneuropathy, unspecified; D51.8 Other vitamin B12 deficiency anemias; Z79.4 Long term (current) use of insulin; Z13.0 Encounter for screening for diseases of the blood and blood-forming organs and certain disorders involving the immune mechanism
CPT/HCPCS: 80053; 80061; 81001; 82043; 82570; 82607; 84443; 85025; 87086; 87186

== ENCOUNTER 2024-01-27 11:44 | Outpatient (CLI) | payer MEDICARE, BC, SELFPAY ==
--- OUTSIDE RECORDS SUMMARY | 2024-01-27 11:50 | XMS_ITS | Clinical Summary ---
Author Organization [facility] Address [address] [place] [address] Care Team Providers Care Water Systems Designer Name Role Phone Elsewhere, Pcp Primary Care Provider Unavailabl e Source Comments Patient records contain information from all sites at [facility]. For routine questions regarding patient records, call [phone] during business hours, M-F 8:00 AM - 5:00 PM Central Time. Record requests for emergency care only can be directed to [phone] at any time.[facility] Allergies Active Allergy Reactions Criticality Noted Date Comments Wmiylxx-Tqn-Cih Reductase Inhibitors Myalgia 06/20/2015 Other reaction(s): Myalgia Medications * This document contains information received from the source organization and may not represent a complete record from that organization. aspirin 81 mg capsule Take 1 tablet by mouth daily. 4 Active levothyroxine (for_SYNTHROID, LEVOTHROID) 175 mcg tablet Take 1 tablet (175 mcg total) by mouth every morning before breakfast. 90 tablet 3 7 Active BD INSULIN PEN NEEDLE UF MINI 31 gauge x 05/30 needle USE TO DELIVER INSULIN 3 8 Active gabapentin (NEURONTIN) 300 mg capsule Take 2 capsules (600 mg total) by mouth 2 (two) times a day. 360 capsule 3 8 Active potassium citrate (UROCIT-K) 10 mEq (1,080 mg) ER tablet TAKE 2 TABLETS BY MOUTH TWICE A DAY WITH MEALS 360 tablet 3 8 Active cyanocobalamin (VITAMIN B12) 1,000 mcg/mL injection INJECT 1 ML (1,000 MCG TOTAL) UNDER THE SKIN EVERY 30 (THIRTY) DAYS. 3 mL 1 8 Active lisinopril-hydr oCHLOROthiazide (PRINZIDE,ZESTO RETIC) 20-12.5 mg per tablet Take 1 tablet by mouth once daily. 30 tablet 9 Active metFORMIN (GLUCOPHAGE) 1,000 mg tablet Take 1 tablet (1,000 mg total) by mouth 2 (two) times a day with meals. 60 tablet 9 Active TRESIBA FLEXTOUCH U-100 100 unit/mL (3 mL) injection INJECT 36 UNITS UNDER THE SKIN AT BEDTIME. 3 pen 9 Active cholecalciferol (VITAMIN D3) 2,000 Unit tablet Take 2,000 Units by mouth. Active glipiZIDE (GLUCOTROL) 10 mg tablet Take 10 mg by mouth 2 (two) times a day before breakfast and dinner. 10 mg in the morning and 5 mg in the evening 2 Active metoprolol succinate (TOPROL-XL) 25 mg 24 hr tablet Take 25 mg by mouth. 1 Active Contour Next Test Strips USE 1 TEST STRIP TWICE A DAY 3 Active escitalopram (LEXAPRO) 10 mg tablet 3 Active FLUoxetine (PROzac) 20 mg tablet Take 2 tablets by mouth daily. 1 Active levothyroxine (SYNTHROID, LEVOTHROID) 150 mcg tablet Take 150 mcg by mouth every morning before breakfast. 1 Active estradioL (ESTRACE) 0.1 mg/g (0.01%) vaginal cream Apply dime-sized amount to the external urethra 3 nights weekly 42.5 g 11 3 Active ascorbic acid, vitamin C, (Vitamin C) 1,000 mg tablet Take 1 tablet (1,000 mg total) by mouth 2 (two) times a day. 180 tablet 1 4 Active Active Problems Problem Noted Date Diagnosed [...] drink = 0.6 oz pur e alcohol) [facility] [employer] Answer Date Recorded In the past 12 months has e [employer], [employer], or water [employer] threatened to shut off services in your home? No 11/09/2023 Humiliation, Afraid, Rape, and Kick questionnair e [...] declined 11/01/2019 How often do you attend [facility] or jehovah's witness services? Patient declined 11/01/2019 Do you belong to any clubs o r organizations such as lutheran groups, unions, fraternal or athletic groups, or [...] and heating? Not hard at all 10/28/2022 [facility] - Occupational Stress Questionnaire Answer Date Recorded [...] to strenuous exercise (like a brisk walk)? 0 days 11/09/2023 On average, how many minutes do you engage in exercise at this level? 0 min 11/09/2023 Hunger Vital Sign Answer Date Recorded Within the past 12 months, y ou worried that your food would run out before you got the money to buy more. Never true 11/09/19 24 Within the past 12 months, t he food you bought just didn't last and you didn't have money to get more. Never true 11/09/2023 PRAPARE - Transportation Answer Date Re corded In the past 12 months, has l ack of transportation kept you from medical appointments or from getting medications? No 10/16 In the past 12 months, has l ack of transportation kept you from meetings, work, or from getting things needed for daily living? No 11/09/2023 Nutrition Answer Date Recorded On average, how many serving s of fruits and vegetables do you eat per day (serving size is equal to 1 cup or approximately the size of a tennis ball)? 3-5 11/09/2023 Dental Answer Date Recorded Dental: Regular Dentist Yes 03/21/19 Employment Answer Date Recorded Employment status Retired 11/09/2023 Housing Stability Answer Date Recorded What is your living situation today? I have a [facility] place to live 11/09/2023 Education Answer Date Recorded What is the highest level of school you have completed or the highest degree you have received? 12th grade 11/01/2019 Comments No Sex and Gender Information Value Date Recorded Sex Assigned at Female 07/22/2017 8:24 AM CDT Legal Sex Female 10:26 AM TEACHER MUSIC Gender Identity Female 07/22/2017 8:24 AM CDT Sexual Orientation Choose not to disclose 2017 8:24 AM CDT Last Filed Vital Signs Vital Sign Reading Time Taken Comments Blood Pressure 155/69 02/08/2023 5:41 PM TEACHER MUS[employer] Pulse 66 01/15/2023 12:52 PM CDT Temperature 36.7 ??C (98 ??F) 02/08/2023 5:41 PM TEACHER [employer] Respiratory Rate 18 02/08/2023 5:41 PM TEACHER [employer]IC Oxygen Saturation 96% 02/08/2023 5:41 PM TEACHER MUSIC Inhaled Oxygen Concentration - - Weight 134 kg (295 lb) 12/26/2018 8:14 AM CDT Height 172.7 cm (5' 8) 02/08/2023 5:38 PM TEACHER [employer] Body Mass Index 46.2 12/26/2018 8:14 AM CDT Plan of Treatment Health Maintenance Due Date Last Done Comments Bone Density Scan (Osteoporosis Screen) 1957 CT Colonography 1955 Cologuard 1955 Depression Monitoring (PHQ-9) 1955 Hepatitis C Screening 1955 Hepatitis B Vaccines (1 of 3 - Risk 3-dose series) 2017 Urine Albumin 01/22/2018 01/22/2017, 12/0 11/2014, 10/04/2013, Additional history exists Diabetic Office Visit with Foot Exam 06/18/2018 06/18/2017, 06/18/2017, 01/22/2017, Additional history exists Hemoglobin A1C 07/08/2021 04/09/2021, 07/0 10/2020, 04/17/2020, Additional history exists Lipid (Cholesterol) Screening 09/21/2021 09/21/2020, 12/29/2018, 01/20/2018, Additional history exists Pneumococcal vaccine (65+ years) (3 of 3 - PPSV23 or PCV20) 2022 04/21/2020, 07/28/2013, 04/11/2011 Creatinine Level (Kidney Function Test) 04/09/2022 04/09/2021, 09/21/2020, 09/02/2019, Additional history exists Potassium Level 04/09/2022 04/09/2021, 07/0 10/2020, 09/02/2019, Additional history exists Sodium Level 04/09/2022 04/09/2021, 07/0 10/2020, 09/02/2019, Additional history exists Thyroid Stimulating Hormone (TSH) test for thyroid function 04/09/2022 04/09/2021, 04/17/2020, 12/29/2018, Additional history exists Dilated Eye Exam 06/01/2022 06/01/2021, , 03/14/2011, Additional history exists Depression Monitoring (PHQ-9 for quality tracking) 03/17/2023 Fall Risk Screen (Annual) 03/17/2023 Office Visit for Blood Pressure Check / Re-check 04/17/2023 01/15/2023 Colonoscopy 07/11/2023 07/10/2018, 07/10/2018 Colorectal Cancer Surveillance 07/11/2023 Mammogram 10/23/2023 10/22/2022, 070 08/2019, 12/03/2016, Additional history exists COVID-19 Vaccine ( - season) 2023 01/08/2021, 06/16/2020, 05/26/2020 Influenza Vaccine (#1) 2023 , 01/08/2021, 02/11/2020, Additional history exists DTaP,Tdap,and Td Vaccines (4 - Td or Tdap) 02/08/2033 02/08/2023, 10/04/2013, 08/19/2007 Zoster Vaccines Completed 03/24/2019, 08/21/2018 Cervical/Vaginal Cancer Screening Discontinued 09/02/2019, 06/17/2013 IPV Vaccines Aged Out No longer eligi ble based on patient's age to complete this topic Medical Devices Implanted Type Area Ripening Room Attendant Device Identifier Shelf Expiration Date Model / Serial / Lot Mrk Biop Tmr Q Shp [id number] - [id number] Implanted:Qty: 1 on 12/11/2022 at [facility] [employer] 05/05/2027 [id number] / / [id number] Procedures Procedure Name Priority Date/Time Associated Diagnosis Comments BI BREAST DIAGNOSTIC BILATERAL WITH TOMOSYNTHESIS RAD - Routine (most inpatients and all outpatients) 10/22/2022 2:20 PM CDT Pain Breast COLONOSCOPY Routine 07/10/2018 1:06 PM CDT Screening Cancer Colon ALBUMIN, RANDOM, U Routine 01/22/2017 10 :33 AM TEACHER MUSIC Diabetes Mellitus Type 2 With Diabetic Neuropathy (HCC) HEMOGLOBIN A1C, B Routine 01/22/2017 10: 33 AM TEACHER MUSIC Diabetes Mellitus Type 2 With Diabetic Neuropathy (HCC) LIPID PANEL, S Routine 01/22/2017 10:33 AM TEACHER MUSIC Diabetes Mellitus Type 2 With Diabetic Neuropathy (HCC) THYROID-STIMULATING HORMONE-SENSITIVE (S-TSH) Routine 01/22/2017 10:33 AM TEACHER MUSIC Hypothyroidism BASIC METABOLIC PANEL, S/P Routine 01/22/2017 10:33 AM TEACHER MUSIC Diabetes Mellitus Type 2 With Diabetic Neuropathy [...] the outer leftbreast. ASSESSMENT: BI-RADS: 4A: Suspicious. us Naye Stroud C.N.P. IMG BI PROCEDURES Yenny l Result * (ABNORMAL) Lipid Panel (01/22/2017 10:33 AM [facility]) Cholesterol, Total 185 mg/dL 2016 11:29 AM [facility] Comment: ----REFERENCE VALUE---- Desirable: < 200 Borderline high: 200 - 239 High: > or = 240 Triglycerides 234(H) mg/dL 01/22/2017 11:29 AM [facility] Comment: ----REFERENCE VALUE---- Normal: <150 Borderline high: 150-199 High: 200-499 Very high: > or =500 Cholesterol, HDL, S 49(L) >=50 mg/dL 01/22/2017 11:29 AM [facility] Calculated LDL 89 mg/dL 01/22/2017 11:29 AM [facility] Comment: ----REFERENCE VALUE---- Desirable: <100 Above Desirable: 100-129 Borderline high: 130-159 High: 160-189 Very high: > or =190 Cholesterol, Non-HDL, Calculated 136 mg/dL 01/22/2017 11:29 AM [facility] Comment: ----REFERENCE VALUE---- Desirable: <130 Above Desirable: 130-159 Borderline high: 160-189 High: 190-219 Very high: > or =220 Blood 01/22/2017 10:3 3 AM TEACHER MUSIC 01/22/2017 10:33 AM [facility] us Trinidad Bill P.A.-C. LAB BLOOD ADD-ON Final Result [facility] [address] * Microalbumin, Random, Urine (01/22/2017 10:33 AM TEACHER MUSIC) Microalbumin 9.2 mg/L 01/22/2017 11:15 AM TEACHER MUSIC [facility] Creatinine 121 mg/dL 01/22/2017 11:15 AM TEACHER MUSIC [facility] Albumin/Creatinin e Ratio 8 <25 mg/g 01/22/2017 11:15 AM TEACHER MUSIC [facility] Urine 01/22/2017 10:3 3 AM TEACHER MUSIC 01/22/2017 10:33 AM TEACHER MUSIC Trinidad OconnorC. LAB URINE ORDERABLES Fi nal Result Performing Organization Address [facility]/ZIP Co de Phone Number [facility] [address] [place] [address] * (ABNORMAL) S-TSH (Thyroid-Stimulating Hormone - Sensitive) (01/22/2017 10:33 AM [facility]) Pathologist [facility] TSH, Sensitive 18.9(H) 0.3 - 4.2 mIU/L 01/22/2017 11:39 AM TEACHER MUSIC [facility] Comment: Biotin has been identified by the anatomy professor as a potential interfering substance. ??Higher concentrations of biotin may be found in multivitamins, hair/nail supplements, and workout supplements. ??If the result does not match clinical observations, repeat testing after patient refrains from the use of supplements for at least 12 hours. Blood 01/22/2017 10:3 3 AM TEACHER MUSIC 01/22/2017 10:33 AM TEACHER MUSIC us Trinidad OconnorC. LAB BLOOD ADD-ON Final Result [facility] [address] [place] [address] * (ABNORMAL) Hemoglobin A1c (01/22/2017 10:33 AM [facility]) Hemoglobin A1c, B 7.0(H) 4.2 - 5.6 % 01/22/2017 11:16 AM [facility] Comment: Hemoglobin A1c values greater than or equal to 6.5 percent are diagnostic for diabetes mellitus. ??Diagnosis should be confirmed by repeat testing. ??In diabetic patients, HbA1c goals should be discussed with healthcare provider. Blood 01/22/2017 10:3 3 AM TEACHER MUSIC 01/22/2017 10:33 AM TEACHER MUSIC Trinidad Bill P.A.-C. LAB BLOOD ADD-ON Final Result [facility] [address] * (ABNORMAL) BMP (Basic Metabolic Panel) (01/22/2017 10:33 AM [facility]) Potassium, S 4.7 3.6 - 5.2 mmol/L 01/22/2017 11:29 AM [facility] Sodium, S 141 135 - 145 mmol/L 01/22/2017 11:29 AM [facility] Chloride, S 98 98 - 107 mmol/L 01/22/2017 11:29 AM [facility] Bicarbonate, S 25 22 - 29 mmol/L 01/22/2017 11:29 AM [facility] Anion Gap 18(H) 7 - 15 01/22/2017 11:29 AM [facility] BUN (Blood Urea Nitrogen), S 17 6 - 21 mg/dL 01/22/2017 11:29 AM [facility] Creatinine 0.66 0.59 - 1.04 mg/dL 01/22/2017 11:29 AM [facility] eGFR Non-Black/Afric an North Korean >90 >=60 mL/min/BSA 01/22/2017 11:29 AM [facility] Comment: ----ADDITIONAL INFORMATION---- Estimated GFR calculated using the 2009 CKD_EPI creatinine equation. eGFR-Black/Afri can [place] Korean >90 >=60 mL/min/BSA 01/22/2017 11:29 AM TEACHER MUSIC [facility] Comment: ----ADDITIONAL INFORMATION---- Estimated GFR calculated using the 2009 CKD_EPI creatinine equation. Calcium, Total, S 9.3 8.9 - 10.1 mg/dL 01/22/2017 11:29 AM TEACHER MUSIC [facility] Glucose, S 144(H) 70 - 140 mg/dL 01/22/2017 11:29 AM TEACHER MUSIC [facility] Blood 01/22/2017 10:3 3 AM TEACHER MUSIC 01/22/2017 10:33 AM TEACHER MUSIC us Trinidad Bill P.A.-C. LAB BLOOD ADD-ON Final Result Performing Organization Address City/State/[facility] Co de Phone Number [facility] [address] [place] [address], [facility] * Pathology ThinPrep Screen HPV Reflex (06/17/2013 5:00 PM CDT) Interpretation [id number] POWERCHART [facility] See Comment POWERCHART Comment: A. ??ThinPrep Pap Test Screen (Cervical/Endocervical HPV Reflex): Satisfactory for evaluation. Negative for intraepithelial lesion or malignancy. [facility] See Comment POWERCHART Comment: Report electronically signed by Mary Anne Gutierrez SCT (ASCP) 06/22/2013 09:08 Interpreted by: ANDRZEJ Laura(ASCP) [facility] See Comment POWERCHART Comment: A. ??ThinPrep Pap Test Screen (Cervical/Endocervical HPV Reflex): Received cloudy specimen in ThinPrep vial. Test Performed by: [place] [address] General Partner: Anthony Virgen III, M.D. Cervix/Endocervix 06/17/2013 5:00 PM CDT us Jocelyn Coleman APRN, C.N.P., D.N.P. LAB PAP PATHDX ORDERABLES Final Result POWERCHART from Last 3 Months or Most Recently Relevant to Health Maintenance Insurance [facility] MEDICARE Care Teams Water Systems Designer Relationship Specialty Start Date End Date Elsewhere, Pcp PCP - General Family Medicine 02/13/18
--- OUTSIDE RECORDS SUMMARY | 2024-01-27 11:51 | XMS_ITS | Encounter Summary ---
Author Organization [facility] Address [address] [place] [address] Care Team Providers Care Job Coaching Name Role Phone Elsewhere, Pcp Primary Care Provider Unavailabl e Encounter Details Date Type Department Care Team (Late st Contact Info) Description 02/02/2018 [facility] [address] [place] [phone] Naye Stroud, C.N.P. 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
--- OUTSIDE RECORDS SUMMARY | 2024-01-27 11:51 | XMS_ITS | Referral Summary ---
Author Organization [facility] Address [address] [place] [address] Care Team Providers Care Apparel Rental Clerk Name Role Phone Elsewhere, Pcp Primary Care Provider Unavailabl e Source Comments Patient records contain information from all sites at [facility]. For routine questions regarding patient records, call [phone] during business hours, M-F 8:00 AM - 5:00 PM Central Time. Record requests for emergency care only can be directed to [phone] at any time.[facility] Allergies Active Allergy Reactions Criticality Noted Date Comments Jzyyewi-Lhs-Dlc Reductase Inhibitors Myalgia 06/20/2015 Other reaction(s): Myalgia [...] drink = 0.6 oz pur e alcohol) [facility] [employer] Answer Date Recorded In the past 12 months has [employer], [employer], oil, or water [employer] threatened to shut off services in your [...] declined 11/01/2019 How often do you attend [facility] or [facility] services? Patient declined 11/01/2019 Do you belong to any clubs o r organizations such as yazidism groups, unions, fraternal or athletic groups, or [...] and heating? Not hard at all 10/28/2022 [facility] - Occupational [...] have a [facility] to live 11/09/2023 Education Answer Date Recorded What is the highest level of school you have completed or the highest degree you have received? 12th grade 11/01/2019 Comments No Sex and Gender Information Value Date Recorded Sex Assigned at Female 07/22/2017 8:24 AM CDT Legal Sex Female 10:26 AM [employer] Gender Identity Female 07/22/2017 8:24 AM CDT Sexual Orientation Choose not to disclose 2017 8:24 AM CDT Last Filed Vital Signs Vital Sign Reading Time Taken Comments Blood Pressure 155/69 02/08/2023 5:41 PM [employer] Pulse 66 01/15/2023 12:52 PM CDT Temperature 36.7 ??C (98 ??F) 02/08/2023 5:41 PM [employer] Respiratory Rate 18 02/08/2023 5:41 PM [employer] Oxygen Saturation 96% 02/08/2023 5:41 PM [employer] Inhaled Oxygen Concentration - - Weight 134 kg (295 lb) 12/26/2018 8:14 AM CDT Height 172.7 cm (5' 8) 02/08/2023 5:38 PM [employer] Body Mass Index 46.2 12/26/2018 8:14 AM CDT Plan of Treatment Not on file Medical Devices Implanted Type Area Supervisor Fish Processing Device Identifier Shelf Expiration Date Model / Serial / Lot Mrk Biop Tmr Q Shp [id number] - [id number] Implanted:Qty: 1 on 12/11/2022 at [facility] [employer] 05/05/2027 [id number] / / [id number] Procedures Procedure Name Priority Date/Time Associated Diagnosis Comments BI BREAST DIAGNOSTIC BILATERAL WITH TOMOSYNTHESIS RAD - Routine (most inpatients and all outpatients) 10/22/2022 2:20 PM CDT Pain Breast COLONOSCOPY Routine 07/10/2018 1:06 PM CDT Screening Cancer Colon ALBUMIN, RANDOM, U Routine 01/22/2017 10 :33 AM [employer] Diabetes Mellitus Type 2 With Diabetic Neuropathy (HCC) HEMOGLOBIN A1C, B Routine 01/22/2017 10: 33 AM [employer] Diabetes Mellitus Type 2 With Diabetic Neuropathy (HCC) LIPID PANEL, S Routine 01/22/2017 10:33 AM [employer] Diabetes Mellitus Type 2 With Diabetic Neuropathy (HCC) THYROID-STIMULATING HORMONE-SENSITIVE (S-TSH) Routine 01/22/2017 10:33 AM [employer] Hypothyroidism BASIC METABOLIC PANEL, S/P Routine 01/22/2017 10:33 AM [employer] Diabetes Mellitus Type 2 With Diabetic Neuropathy [...] 4A: Suspicious. Naye Stroud C.N.P. IMG BI PROCEDURES Yenny l Result * (ABNORMAL) Lipid Panel (01/22/2017 10:33 AM [employer]) Cholesterol, Total 185 mg/dL 2016 11:29 AM SUPERVISOR DAIR[employer] [facility] Comment: ----REFERENCE VALUE---- Desirable: < 200 Borderline high: 200 - 239 High: > or = 240 Triglycerides 234(H) mg/dL 01/22/2017 11:29 AM SUPERVISOR DAIR[employer] [facility] Comment: ----REFERENCE VALUE---- Normal: <150 Borderline high: 150-199 High: 200-499 Very high: > or =500 Cholesterol, HDL, S 49(L) >=50 mg/dL 01/22/2017 11:29 AM [employer] [facility] Calculated LDL 89 mg/dL 01/22/2017 11:29 AM [employer] [facility] Comment: ----REFERENCE VALUE---- Desirable: <100 Above Desirable: 100-129 Borderline high: 130-159 High: 160-189 Very high: > or =190 Cholesterol, Non-HDL, Calculated 136 mg/dL 01/22/2017 11:29 AM [employer] [facility] Comment: ----REFERENCE VALUE---- Desirable: <130 Above Desirable: 130-159 Borderline high: 160-189 High: 190-219 Very high: > or =220 Blood 01/22/2017 10:3 3 AM [employer] 01/22/2017 10:33 AM [employer] us Trinidad Bill P.A.-C. LAB BLOOD ADD-ON Final Result Performing Organization Address City/[facility]/ZIP Co de Phone Number [facility] [address] [place] [address] * Microalbumin, Random, Urine (01/22/2017 10:33 AM [employer]) Microalbumin 9.2 mg/L 01/22/2017 11:15 AM [employer] [facility] Creatinine 121 mg/dL 01/22/2017 11:15 AM [employer] [facility] Albumin/Creatinin e Ratio 8 <25 mg/g 01/22/2017 11:15 AM [employer] [facility] Urine 01/22/2017 10:3 3 AM [employer] 01/22/2017 10:33 AM [employer] Trinidad OconnorCLuisa LAB URINE ORDERABLES Fi nal Result Performing Organization Address [facility]/ZIP Co de Phone Number [facility] [address] [place] [address] * (ABNORMAL) S-TSH (Thyroid-Stimulating Hormone - Sensitive) (01/22/2017 10:33 AM [employer]) TSH, Sensitive 18.9(H) 0.3 - 4.2 mIU/L 01/22/2017 11:39 AM [employer] [facility] Comment: Biotin has been identified by the sap business objects developer as a potential interfering substance. ??Higher concentrations of biotin may be found in multivitamins, hair/nail supplements, and workout supplements. ??If the result does not match clinical observations, repeat testing after patient refrains from the use of supplements for at least 12 hours. Blood 01/22/2017 10:3 3 AM [employer] 01/22/2017 10:33 AM [employer] us Trinidad Carbajal-C. LAB BLOOD ADD-ON Final Result Performing Organization Address [facility] Co de Phone Number [facility] [address] [place] [address] * (ABNORMAL) Hemoglobin A1c (01/22/2017 10:33 AM [employer]) Hemoglobin A1c, B 7.0(H) 4.2 - 5.6 % 01/22/2017 11:16 AM [employer] [facility] Comment: Hemoglobin A1c values greater than or equal to 6.5 percent are diagnostic for diabetes mellitus. ??Diagnosis should be confirmed by repeat testing. ??In diabetic patients, HbA1c goals should be discussed with healthcare provider. Blood 01/22/2017 10:3 3 AM [employer] 01/22/2017 10:33 AM [employer] us Trinidad Carbajal-C. LAB BLOOD ADD-ON Final Result Performing Organization Address [facility] Co de Phone Number [facility] [address] [place] [address] * (ABNORMAL) BMP (Basic Metabolic Panel) (01/22/2017 10:33 AM [employer]) Potassium, S 4.7 3.6 - 5.2 mmol/L 01/22/2017 11:29 AM [employer] [facility] Sodium, S 141 135 - 145 mmol/L 01/22/2017 11:29 AM [facility] Chloride, S 98 98 - 107 mmol/L 01/22/2017 11:29 AM [facility] Bicarbonate, S 25 22 - 29 mmol/L 01/22/2017 11:29 AM [employer] [facility] Anion Gap 18(H) 7 - 15 01/22/2017 11:29 AM [facility] BUN (Blood Urea Nitrogen), S 17 6 - 21 mg/dL 01/22/2017 11:29 AM [facility] Creatinine 0.66 0.59 - 1.04 mg/dL 01/22/2017 11:29 AM [facility] eGFR Non-Black/Afric an Singaporean >90 >=60 mL/min/BSA 01/22/2017 11:29 AM [employer] [facility] Comment: ----ADDITIONAL INFORMATION---- Estimated GFR calculated using the 2009 CKD_EPI creatinine equation. eGFR-Black/Afri can Singaporean >90 >=60 mL/min/BSA 01/22/2017 11:29 AM [facility] Comment: ----ADDITIONAL INFORMATION---- Estimated GFR calculated using the 2009 CKD_EPI creatinine equation. Calcium, Total, S 9.3 8.9 - 10.1 mg/dL 01/22/2017 11:29 AM [employer] [facility] Glucose, S 144(H) 70 - 140 mg/dL 01/22/2017 11:29 AM [facility] Blood 01/22/2017 10:3 3 AM [employer] 01/22/2017 10:33 AM [employer] us Trinidad Bill P.A.-C. LAB BLOOD ADD-ON Final Result [facility] [id number] [place] [address] * Pathology ThinPrep Screen HPV Reflex (06/17/2013 5:00 PM CDT) Interpretation [id number] POWERCHART HXThPrep Scrn [facility] See Comment POWERCHART Comment: A. ??ThinPrep Pap Test Screen (Cervical/Endocervical HPV Reflex): Satisfactory for evaluation. Negative for intraepithelial lesion or malignancy. HXThPrep Scrn [facility] See Comment POWERCHART Comment: Report electronically signed by Mary Anne Gutierrez, SCT (ASCP) 06/22/2013 09:08 Interpreted by: Elia Barraza, CT(ASCP) [facility] See Comment POWERCHART Comment: A. ??ThinPrep Pap Test Screen (Cervical/Endocervical HPV Reflex): Received cloudy specimen in ThinPrep vial. Test Performed by: [place] [address] Chief Supply Chain Officer: Anthony Virgen III, M.D. Cervix/Endocervix 06/17/2013 5:00 PM CDT Jocelyn Coleman APRN C.N.P., D.N.P. LAB PAP PATHDX ORDERABLES Final Result POWERCHART from Last 3 Months or Most Recently Relevant to Health Maintenance Insurance [facility] MEDICARE Care Teams Apparel Rental Clerk Relationship Specialty Start Date End Date Elsewhere, Pcp PCP - General Family Medicine 02/13/18
--- OUTSIDE RECORDS SUMMARY | 2024-01-27 11:51 | XMS_ITS ---
Author Organization [facility] Address [address] [place] [address] Care Team Providers Care Education Reviewer Name Role Phone Unavailable Unavailable Unavailable Surgery Details Not on file Complications Check Surgery Details section. Procedure Estimated Blood Loss Check Surgery Details section. Procedure Findings Check Surgery Details section. Procedure Specimens Taken Check Surgery Details section.
== END 2024-01-27 11:45 | disposition home or self-care (01) ==
PROVIDERS: PCP Nurse Practitioner Family; Visit Provider Nurse Practitioner Family
DX: R53.83 Other fatigue (principal); M79.10 Myalgia, unspecified site; M54.50 Low back pain, unspecified
CPT/HCPCS: 80053; 81001; 82306; 84443; 85025; 85651; 86038; 86140; 86200; 86231; 86258; 86364; 86431; 86812; 87086; 87186

== ENCOUNTER 2024-03-29 09:34 | Outpatient (CLI) | payer MEDICARE, BC, SELFPAY | END 2024-03-29 09:35 | disposition home or self-care (01) | PROVIDERS: PCP Nurse Practitioner Family; Visit Provider Nurse Practitioner Family | DX: R79.89 Other specified abnormal findings of blood chemistry (principal); E55.9 Vitamin D deficiency, unspecified; R35.0 Frequency of micturition | CPT/HCPCS: 81001; 82306; 82607; 87077; 87086; 87186 ==

== ENCOUNTER 2024-04-30 09:46 | Outpatient (CLI) | payer MEDICARE, BC, SELFPAY ==
[2024-04-30 17:11] LABS: PCR FLU A Negative PCR FLU A (Negative); PCR FLU B Negative PCR FLU B (Negative); PCR RSV POSITIVE PCR RSV (Negative); SARS PCR* Negative SARS-CoV-2 (Negative)
== END 2024-04-30 09:47 | disposition home or self-care (01) ==
PROVIDERS: PCP Nurse Practitioner Family; Visit Provider Nurse Practitioner Family
DX: R05.9 Cough, unspecified (principal); R06.02 Shortness of breath; B97.4 Respiratory syncytial virus as the cause of diseases classified elsewhere
CPT/HCPCS: 85025; 87631

== ENCOUNTER 2024-06-04 10:09 | Outpatient (CLI) | payer MEDICARE, BC, SELFPAY ==
--- NOTE | 2024-06-04 10:45 | CRLHL7_ITS ---
For Patients: As a result of the Century Cures Act, medical imaging exams and procedure reports are released immediately into your electronic medical record. You may view this report before your referring provider. If you have questions, please contact your health care provider. INDICATION: Follow-up CT COMPARISON: CT urogram 12/06/2022 TECHNIQUE: 2D ortiz scale and color Doppler images were acquired of the pelvis using a transabdominal and transvaginal approach. FINDINGS: Pedunculated left fundal fibroid is present measuring 2.5 x 3.0 x 2.2 cm. Additional exophytic fibroid inferior uterus measuring 2.3 x 2.3 x 2.1 cm. Posterior fibroid measures 2.4 x 2.1 x 2.2 cm. Measures 9.0 cm in length by 3.7 cm in AP diameter by 4.4 cm in transverse dimension. Endometrium measures 16 millimeters. Ovaries not definitively visualized. There are no suspicious fluid collections within the cul-de-sac. IMPRESSION: Multiple uterine fibroids including an exophytic left fundal pedunculated fibroid measuring 3.0 cm accounting for the CT findings. Diffuse thickening of the endometrium measuring up to 16 millimeters. Dictated by Victorino Bowers MD @ 06/04/2024 12:07:02 PM (Electronically Signed)
== END 2024-06-04 10:10 | disposition home or self-care (01) ==
LOC: US 10:10
PROVIDERS: PCP Nurse Practitioner Family; Visit Provider Nurse Practitioner Family
DX: R93.89 Abnormal findings on diagnostic imaging of other specified body structures (principal); D25.9 Leiomyoma of uterus, unspecified
CPT/HCPCS: 76830; 76856

== ENCOUNTER 2024-06-15 11:18 | Outpatient (CLI) | payer MEDICARE, BC, SELFPAY | END 2024-06-15 11:19 | disposition home or self-care (01) | PROVIDERS: PCP Nurse Practitioner Family; Visit Provider Nurse Practitioner Family | DX: R06.09 Other forms of dyspnea (principal); M79.645 Pain in left finger(s) | CPT/HCPCS: 80048; 83880; 84550; 85025 ==

== ENCOUNTER 2024-06-23 10:45 | Outpatient (RCR) | payer MEDICARE, BC, SELFPAY ==
--- NOTE | 2024-05-14 10:58 | PT.OPEX ---
PT [facility] Outpatient Eval PT [facility] Outpatient Eval Start: 05/14/24 07:27 Freq: Status: Active Protocol: Document 05/14/24 07:28 CRP (Rec: 05/14/24 10:55 CRP [id number]) E-signed By Tip Cordero PT Physical Therapy Outpatient Evaluation Insurance Information Recert Due Date 08/12/24 Insurance Name Medicare B Medical Diagnosis Chronic Low back pain Referring MD Dr Alejandra Subjective Subjective Pt co LBP that makes standing and walking very difficult. Can only stand about 3-4 minutes and walking more than 100 yards is very painful. Across the whole low back. Has had hx of LBP over the last 2 years. Has gotten severe over the last couple of months. Sitting is better than standing. Best position is lying on L side with legs straight and slightly rolled back resting on folded up blank. For a few days recently she was having some pain going down L upper leg. Was gone within 3 days. Has had long hx of neuropathy into both feet so numbness/ tingling is common. Can have times where it is very difficult lifting her L leg up . Just does not have the strength. Has not had her leg give out though when walking. Balance is definitely an issue though due to neuropathy . Pt also notes she is legally blind with distorted peripheral vision. This also negatively impacts her balance . Pain Comments 2-10/24 Current Work Status Retired Objective Other/Pertinent Objective Trunk ROM: flex mod restriction with pain. Ext ruddy restriction with pain, Bilat SB ruddy restriction with pain, bilat rot ruddy restriction. Seated flex WNL Supine positioning: Ruddy pain in hooklying position. CGA sit<>supine Hip ROM: Low back painful with L hip flex and ER. R hip ROM WNL. MMT: 4-/5 L hip flex and knee ext. R LE 4+/5. Poor lumbopelvic control. At this time the patient's pain levels were ramping up to an unreasonable level so the eval was ended at this time. Functional Test Performed & Score Mod Oswestry 62 Assessment Assessment/Impression Pt presents to the clinic with long standing issues of LBP. Pts signs and sxs are consistent with lumbar spine DDD/DJD resulting in poor tolerance to extension biases functional activity, general functional transfers, bed/mat mobility and extension biased exercise. With this, the pt also shows significant balance deficits that not only increase her risk for falls but also increases undue stress to her lumbar spine. Skilled PT is necessary to incorporate ther ex, nm deepa, manual therapy and pt education to decrease pain, improve functional mobility and improve safety with ambulation. 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 Pt will be independent with HEP in 8 weeks. 2. Pt will walk for exer x 15 minutes with 75% decrease in pain in 12 weeks. 3. Pt will complete 30 minutes of painter drum that include standing activity with 75% decrease in pain in 12 weeks. Coordination/Communication With Referral Source Treatment Plan/Direct Interventions Gait Training,Joint Mobilization,Manual Therapy, Neuromuscular Re-ed,Self-Care/ Home Management,Therapeutic Activities,Therapeutic Exercises Frequency/Duration 1-2x/wk for 12 weeks Patient Will Be Discharged From Therapy Completion of LTG(s),Skills Plateau,Independent w/HEP, Independently Progressing Evaluation Billing Untimed Code Treatment Minutes 40 Complexity Moderate Certification Information Initial Certification Date 05/14/24 Ending Certification Date 08/12/24 Provider Signature Required Yes Provider Signature Shows Agreement With POC & Medical Necessity Physician NPI Number Write NPI# Here Physician Comment/Change : Physician Signature & Date Requested Please Sign/Date Here
== END 2024-06-23 13:43 | disposition home or self-care (01) ==
PROVIDERS: PCP Nurse Practitioner Family; Visit Provider Family Medicine
DX: M54.50 Low back pain, unspecified (principal); G89.29 Other chronic pain; Z51.89 Encounter for other specified aftercare
CPT/HCPCS: 97110; 97162

== ENCOUNTER 2024-08-25 13:47 | Outpatient (CLI) | payer MEDICARE, BC, SELFPAY ==
--- NOTE | 2024-08-25 14:00 | CRLHL7_ITS ---
For Patients: As a result of the Century Cures Act, medical imaging exams and procedure reports are released immediately into your electronic medical record. You may view this report before your referring provider. If you have questions, please contact your health care provider. DXA BONE MINERAL DENSITY STUDY Current height (in): 67. Weight (lb): 300. Menopause age: 57. Ethnicity: White. 1. Have you had a previous hip or vertebral fracture? No. 2. Have you had any fractures during your adult life which did not result from significant trauma (e.g., auto accident)? No. 3. Did either of your parents have a hip fracture? No. 4. Do you smoke? No. 5. Have you ever taken Glucocorticoids? No. 6. Do you have rheumatoid arthritis? No. 7. Do you have secondary osteoporosis? No. 8. Do you drink 3 or more alcoholic drinks per day? No. 9. Are you being treated for osteoporosis? No. 10. Have you ever taken any of the following medications: Actonel, Evista, Fosamax, Miacalcin, Reclast, Boniva, Forteo, HRT (i.e. estrogen/hormone therapy), Protelos, Prolia, Vitamin D, Calcium, other ??? please specify. ANSWER: Yes, Vitamin D. 11. Do you have any of the following medical conditions: Anorexia or bulimia, asthma or emphysema, end stage renal disease, hyperparathyroidism, any seizure disorders, cancer, inflammatory bowel diseases, hysterectomy, other ??? please specify. ANSWER: No. 12. What was your maximum height (inches)? 67. 13. Do you perform weight bearing exercise regularly? No. 14. Do you regularly consume dairy products? No. 15. Do you drink caffeinated beverages? No. 16. At what age did your period start? 15. 17. Are you premenopausal? No. 18. How many full term pregnancies have you had? 4. 19. Have you ever missed your period for more than 6 months in a row (not including or menopause)? No. TECHNIQUE: Bone mineral density study was performed using the [employer]. FINDINGS: The results of the study expressed as bone mineral density (BMD) are as follows: Lumbar spine L1 to L4: BMD: 1.330 g/cm2. T-score: 2.6. Z-score: 4.5. Neck Left: BMD: 1.002 g/cm2. T-score: 1.4. Z-score: 3.0. Right: BMD: 0.863 g/cm2. T-score: 0.1. Z-score: 1.8. Total Left: BMD: 1.238 g/cm2. T-score: 2.4. Z-score: 3.8. Right: BMD: 1.187 g/cm2. T-score: 2.0. Z-score: 3.4. Victorino Bowers M.D. Diagnostic Radiologist [email or web address] MARCE/raheem DW/Dictated by: Victorino Bowers MD @ 08/27/2024 10:49:00 AM (Electronically Signed)
--- NOTE | 2024-08-25 14:40 | CRLHL7_ITS ---
For Patients: As a result of the Century Cures Act, medical imaging exams and procedure reports are released immediately into your electronic medical record. You may view this report before your referring provider. If you have questions, please contact your health care provider. INDICATION: BILATERAL SCREENING MAMMOGRAM, ASYMPTOMATIC 69 Y/O FEMALE COMPARISON: 10/22/2022, 09/20/2019, 12/02/2016 TECHNIQUE: Digital mammogram in CC and MLO projections including computer-aided detection (CAD) and tomosynthesis. BREAST COMPOSITION: The breasts are almost entirely fatty. FINDINGS: No suspicious findings. ASSESSMENT: BI-RADS 2 Benign RECOMMENDATION: Annual screening mammogram. A lay language report of this examination will be provided to the patient. Dictated by: Victorino Bowers MD @ 08/27/2024 08:21:57 (Electronically Signed)
== END 2024-08-25 13:48 | disposition home or self-care (01) ==
LOC: RAD 13:49
PROVIDERS: PCP Nurse Practitioner Family; Visit Provider Nurse Practitioner Family
DX: Z12.31 Encounter for screening mammogram for malignant neoplasm of breast (principal); Z78.0 Asymptomatic menopausal state; M85.89 Other specified disorders of bone density and structure, multiple sites
CPT/HCPCS: 77063; 77067; 77080

== ENCOUNTER 2024-12-06 10:25 | Outpatient (CLI) | payer MEDICARE, BC, SELFPAY ==
--- NOTE | 2024-12-06 10:45 | CRLHL7_ITS ---
For Patients: As a result of the Century Cures Act, medical imaging exams and procedure reports are released immediately into your electronic medical record. You may view this report before your referring provider. If you have questions, please contact your health care provider. INDICATION: Evaluate IUD position after recently placed. COMPARISON: 06/04/2024 TECHNIQUE: 2D ortiz-scale and color Doppler images were acquired of the pelvis using a transabdominal and transvaginal approach. Transvaginal imaging performed to better visualize the endometrial stripe and ovaries. FINDINGS: Left anterior fundal fibroid measures 2.4 x 2.1 x 2.0 cm. Uterus measures 8.8 cm in length by 3.9 cm in AP diameter by 4.1 cm in transverse dimension. The myometrium has a heterogeneous echotexture. The endometrial lining measures 9 mm in composite thickness. Normal position of an IUD within the endometrial canal. The ovaries are not visualized due to overlying bowel gas. There are no suspicious fluid collections within the cul-de-sac. IMPRESSION: Normal position of an IUD within the endometrial canal. Heterogeneous uterine echotexture with a left anterior fundal fibroid which measures 2.4 cm. Dictated by Victorino Bowers MD @ 12/06/2024 3:49:54 PM (Electronically Signed)
== END 2024-12-06 10:26 | disposition home or self-care (01) ==
LOC: US 10:26
PROVIDERS: PCP Nurse Practitioner Family; Visit Provider Student in an Organized Health Care Education/Training Program
DX: Z30.431 Encounter for routine checking of intrauterine contraceptive device (principal); D25.9 Leiomyoma of uterus, unspecified
CPT/HCPCS: 76830; 76856

== ENCOUNTER 2025-01-04 11:26 | Outpatient (CLI) | payer MEDICARE, BC, SELFPAY | END 2025-01-04 11:27 | disposition home or self-care (01) | LOC: NFLDREF 01-07 14:47 | PROVIDERS: PCP Nurse Practitioner Family; Referring Provider Nurse Practitioner Family; Visit Provider Nurse Practitioner Family | DX: N39.0 Urinary tract infection, site not specified (principal) | CPT/HCPCS: 81001; 87086 ==

== ENCOUNTER 2025-02-03 11:41 | Outpatient (CLI) | payer MEDICARE, BC, SELFPAY | END 2025-02-03 11:42 | disposition home or self-care (01) | PROVIDERS: PCP Nurse Practitioner Family; Visit Provider Nurse Practitioner Family | DX: N39.0 Urinary tract infection, site not specified (principal) | CPT/HCPCS: 81001; 82947; 87086 ==

== ENCOUNTER 2025-02-08 07:04 | Outpatient (RCR) | payer MEDICARE, BC, SELFPAY ==
[2025-02-08 07:25] VITALS: BP 147/70; PULSE 68; RESP 20; TEMP 36.4; O2SAT 95
[2025-02-08] MEDS: MEROPENEM 1 GM in 0.9 % SODIUM CHLORIDE Mini-bag 100 ML IVPB ×2 (07:51→14:24)
[2025-02-08 08:28] VITALS: BP 143/60; PULSE 68; RESP 18; TEMP 36.9; O2SAT 95
[2025-02-08 14:26] VITALS: BP 187/72; PULSE 80; RESP 18; TEMP 37; O2SAT 96
[2025-02-08 15:21] VITALS: BP 153/78; PULSE 66; RESP 16; TEMP 37; O2SAT 96
== END 2025-02-08 15:30 | disposition home or self-care (01) ==
LOC: MS OUT 07:04
PROVIDERS: PCP Nurse Practitioner Family; Visit Provider Family Medicine
DX: E11.9 Type 2 diabetes mellitus without complications (principal)
CPT/HCPCS: G0463; J2185

== ENCOUNTER 2025-02-24 12:06 | Outpatient (CLI) | payer MEDICARE, BC, SELFPAY | END 2025-02-24 12:07 | disposition home or self-care (01) | LOC: NFLDREF 03-02 09:23 | PROVIDERS: PCP Nurse Practitioner Family; Referring Provider Nurse Practitioner Family; Visit Provider Nurse Practitioner Family | DX: N39.0 Urinary tract infection, site not specified (principal) | CPT/HCPCS: 81001; 87086; 87186 ==

== ENCOUNTER 2025-03-15 09:53 | Outpatient (CLI) | payer MEDICARE, BC, SELFPAY ==
--- NOTE | 2025-03-15 10:00 | CRLHL7_ITS ---
For Patients: As a result of the Cures Act, medical imaging exams and procedure reports are released immediately into your electronic medical record. You may view this report before your referring provider. If you have questions, please contact your health care provider. Indication: FREQUENT UTIS MOST RECENT EARLY FEB. HX OF KIDNEY STONES Technique: Routine noncontrast CT abdomen and pelvis Please note that all CT scans at this facility use dose modulation, iterative reconstruction, and/or weight-based dosing when appropriate to reduce radiation dose to as low as reasonably achievable. Comparison: 12/06/2022 Findings: Chronic scarring with round atelectasis in the left lower lobe. No pleural effusion. The noncontrast enhanced liver is normal. Normal spleen. The gallbladder is absent. No biliary obstruction. Normal adrenal glands. No hydronephrosis. Mild atherosclerotic changes. Incidental high density material in the cecum. Large left paramedian left-sided hernia is again noted containing multiple loops of small bowel. This hernia measures approximately 21 cm. No bowel obstruction or inflammatory change. Mild sigmoid diverticulosis. No diverticulitis. Bladder is incompletely distended. No bladder stones. Ureters are unremarkable. IUD is present in the midline of the uterus. Stable appearance of the adnexa. No large renal calculi. Degenerative changes at both hips and within the lumbar spine. No fracture. Impression: No renal, ureteral or bladder calculi. No hydronephrosis, hydroureter or bladder wall thickening. Stable appearance of pelvis with an exophytic uterine fibroid unchanged. Chronic large left lower quadrant abdominal wall hernia containing multiple loops of small bowel. No bowel obstruction. Please note that all CT scans at this facility use dose modulation, iterative reconstruction, and/or weight-based dosing when appropriate to reduce radiation dose to as low as reasonably achievable. Dictated by Victorino Bowers MD @ 03/15/2025 10:29:34 AM (Electronically Signed)
== END 2025-03-15 09:54 | disposition home or self-care (01) ==
LOC: CT 09:54
PROVIDERS: PCP Nurse Practitioner Family; Visit Provider Family Medicine
DX: N39.0 Urinary tract infection, site not specified (principal); D25.9 Leiomyoma of uterus, unspecified; K43.9 Ventral hernia without obstruction or gangrene; Z87.442 Personal history of urinary calculi
CPT/HCPCS: 74176